=== PATIENT | male | born 1945 | race Asian ===

== ENCOUNTER 2020-12-28 14:32 | Inpatient (IN) | payer BC, MEDICAID ==
[~2020-12-28] VITALS: Ht 160 cm; Wt 44.0 kg
--- NOTE | 2020-12-28 14:56 | NUR ---
Dr Buitrago at the bedside for MSE.
[2020-12-28 15:11] LABS: *BILIRUBIN,URIN NEGATIVE (NEGATIVE); *BLOOD, URINE 3+ (NEGATIVE); *CLARITY,URINE SLIGHTLY CLOUDY (CLEAR); *COLOR,URINE YELLOW (YELLOW); *KETONES,URINE NEGATIVE (NEGATIVE); *UROBILINOGEN,URINE 0.2 E.U./dl (NORMAL); LEUKOCYTE ESTERASE ,URINE NEGATIVE (NEGATIVE); NITRITE, URINE NEGATIVE (NEGATIVE); PH,URINE 5.5 (5.0-8.0); UGLUCOSE NEGATIVE (NEGATIVE)
[2020-12-28] MEDS ORDERED: IV NORMAL SALINE 1000 ML BAG IV ONE (15:15)
[2020-12-28 15:22] LABS: BACTERIA,URINE NONE SEEN /HPF (NONE SEEN); RBC,URINE 80-100 /HPF (0-3)
--- NOTE | 2020-12-28 15:25 | NUR ---
Pt's daughter translate for pt's consent for IV contrasted CT. Pt signed consent, placed in the chart.
[2020-12-28 15:40] LABS: BASOPHILS # (AUTO) 0.1 K/uL (0.0-8.0); EOSINOPHILS # (AUTO) 0.4 K/uL (0.0-0.7); EOSINOPHILS % (AUTO) 3.2 % (0.0-7.0); HEMATOCRIT 34.3 % (36.7-47.1); HEMOGLOBIN 10.7 g/dL (12.5-16.3); LYMPHOCYTES # (AUTO) 1.2 K/uL (20.0-40.0); LYMPHOCYTES % (AUTO) 9.6 % (20.5-51.5); MEAN CORPUSCULAR HEMOGLOBIN 25.2 uug (23.8-33.4); MEAN CORPUSCULAR HGB CONC 31 g/dL (32.5-36.3); MEAN CORPUSCULAR VOLUME 80.8 fL (73.0-96.2); MONOCYTES # (AUTO) 0.8 K/uL (2.0-10.0); NEUTROPHILS # (AUTO) 9.4 K/uL (1.8-8.9); NEUTROPHILS % (AUTO) 79.2 % (38.5-71.5); PLATELET COUNT (AUTO) 322 K/uL (152-348); RED BLOOD CELL COUNT(AUTO) 4.24 MIL/uL (4.06-5.63); WHITE BLOOD COUNT (AUTO) 11.9 K/uL (3.6-10.2)
[2020-12-28 15:44] LABS: CREATININE 1.1 mg/dL (0.6-1.3); POTASSIUM 3.9 mmol/L (3.5-5.1)
[2020-12-28 16:01] LABS: BILIRUBIN,DIRECT 0.1 mg/dL (0.0-0.2); BILIRUBIN,TOTAL 0.2 mg/dL (0.2-1.0); TOTAL PROTEIN, SERUM 7.8 g/dL (6.4-8.2)
[2020-12-28] MEDS ORDERED: IOHEXOL 300MG/ML 100 ML INFUS..BTL ONE (16:07)
[2020-12-28] MEDS ORDERED: IV NORMAL SALINE 250 ML IV ONE (16:07)
[2020-12-28] MEDS ORDERED: SWABABLE VALVE TRANSFER SET EA MC ONE (16:07)
--- NOTE | 2020-12-28 18:02 | NUR ---
Dr Buitrago speaking to DR Julien(oncology).
--- NOTE | 2020-12-28 18:38 | NUR ---
GENNY PRINGLE spoke to vascular surgeon.
--- NOTE | 2020-12-28 18:50 | NUR ---
Received telephone call from Cristhian from [facility]. Cristhian stated their physician as agreed that the pt may be transfered to any facility for higher level of care.
--- NOTE | 2020-12-28 19:30 | NUR ---
Patient is resting semi-fowlers on bed. No acute distress is noted at this time.
--- NOTE | 2020-12-28 19:35 | NUR ---
Made a phone call to [facility]. Spoke with transfer center nurse Ramírez to request ACLS transfer of patient for vascular surgery and cardiothoracic per MD Cheng. Nurse Ramírez requested clinicals of patient to be faxed to .
--- NOTE | 2020-12-28 19:39 | NUR ---
[facility] [[email or web address]] phone intake called , left message to request transfer for higher level of care.
--- NOTE | 2020-12-28 19:40 | NUR ---
[facility] Greg Quintanilla called for higher level of care, phone number ; -Spoke with UBALDO Curry; faxed facesheet and clinicals.
--- NOTE | 2020-12-28 20:04 | NUR ---
[facility] contacted; phone number: ; -Spoke with UBALDO Sheth; sent facesheet and clinicals.
--- NOTE | 2020-12-28 20:39 | NUR ---
[facility] called back and requested to be connected to MD Cheng. MD Cheng on phone with them.
--- NOTE | 2020-12-28 20:56 | NUR ---
Dolores duffy in EDM - 12/28/20 at 2150 by MAKAYLA [facility] called back. UBALDO Sheth states that the institution declined to take the patient.
--- NOTE | 2020-12-28 20:56 | NUR ---
[facility] called back. UBALDO Sheth states that the institution declined to take the patient, stating the patient meets criteria more in line with involving hospice care.
--- NOTE | 2020-12-28 21:29 | NUR ---
[facility] Greg Landeros called back: -RN Antoinette stated cardiothoracic surgeon Joshua Crandall declined transfer d/t unacceptable masses stating patient is not a surgical candidate.
--- NOTE | 2020-12-28 21:50 | NUR ---
[facility] intake: ; fax: -Status paperwork faxed; Tawana declined patient transfer as they do not have teritary care services to meet the patient's specific needs.
--- NOTE | 2020-12-28 21:56 | NUR ---
Called [facility] again to request transfer for higher level of care. Left message again.
--- NOTE | 2020-12-28 22:27 | NUR ---
[facility] intake called back, UBALDO Rush requested facesheet and clinicals to be faxed to: . Paperwork faxed. Pending call back.
--- NOTE | 2020-12-28 23:26 | NUR ---
Patient resting on bed, eyes closed. No acute distress noted at this time.
--- NOTE | 2020-12-28 23:50 | NUR ---
[facility]jay Townsend called back service representative Kadie states the reason is that it was financially declined by the insurance company. She recommends reaching out to [facility] to see which tertiary care facility is contracted and states Charles Townsend will deny regardless.
--- NOTE | 2020-12-29 01:34 | NUR ---
Paged Epic panel biodiesel plant operations engineer. Waiting for Myah Rowe DNP to call back.
--- NOTE | 2020-12-29 01:36 | NUR ---
Called for room for patient. Patient will be assigned to telemetry room 319. call center analyst hospitalist BONITA Rowe paged from [facility].
--- NOTE | 2020-12-29 01:38 | NUR ---
BONITA Rowe called back, call transferred to MD Cheng.
[2020-12-29] MEDS ORDERED: TEMAZEPAM 15 MG CAPSULE PO PRN (01:45)
[2020-12-29] MEDS ORDERED: ONDANSETRON 4 MG/2 ML VIAL IV PRN (01:45)
[2020-12-29] MEDS ORDERED: Z GUARD REMEDY PASTE 57 GM TUBE TOP PRN (01:45)
[2020-12-29] MEDS ORDERED: MORPHINE SULFATE 2 MG/1 ML DISP.SYRIN IV PRN (01:45)
[2020-12-29] MEDS ORDERED: ACETAMINOPHEN 325 MG TABLET PO PRN (01:45)
--- NOTE | 2020-12-29 02:00 | NUR ---
[facility] intake called back, requesting authorization for transfer of patient. Call transferred to Ronks.
--- NOTE | 2020-12-29 02:22 | NUR ---
Report given to UBALDO Smith.
--- NOTE | 2020-12-29 03:23 | NUR ---
Patient resting in bed, no acute distress noted. Pending [facility] [place] call back to follow up on patient.
--- NOTE | 2020-12-29 03:25 | NUR ---
[facility] [place] [place]GEON CALLED BACK, CALL TRANSFERED TO MD SHERWOOD.
--- NOTE | 2020-12-29 03:34 | NUR ---
Note tati in EDM - 12/29/20 at 0336 by MAKAYLA [facility] CT Surgeon Jonas declined accepting the patient d/t too high of a tumor border for cardiothoracic surgery. Patient will be admitted here in [facility].
--- NOTE | 2020-12-29 03:36 | NUR ---
[facility] CT Surgeon Jonas declined accepting the patient d/t too high of a tumor burden for cardiothoracic surgery. Patient will be admitted here in [facility].
--- NOTE | 2020-12-29 04:02 | NUR ---
UBALDO Rush from [facility] called to notify that oncology is not accepting the patient either and to reiterate that the cardiothoracic surgeon is not accepting the patient either.
--- NOTE | 2020-12-29 04:02 | NUR ---
Dolores duffy in ED - 12/29/20 at 0403 by MAKAYLA UBALDO Rush from [facility] called to notify that oncology is not accepting the patient either and to reiterate that the cardiothoracic surgeon is not accepting the patient either.
--- NOTE | 2020-12-29 04:30 | NUR ---
Pt. admitted to telemetry room 319, under care of BONITA Rowe. Belongs List completed
[2020-12-29 05:02] VITALS: BP 145/77
--- NOTE | 2020-12-29 05:28 | NUR ---
ADMITTED,MALE WITH CHIEF COMPLAINED OF HEMATURIA,ALERT X3 SPEAKS [place], MADE COMFORTABLE. ORDERS CARRIED OUT
--- NOTE | 2020-12-29 05:30 | NUR ---
NO HEMATURIA NOTED
--- NOTE | 2020-12-29 07:46 | NUR ---
PATIENT AWAKE AND RESPONSIVE. BREATHING EVEN AND NON LABORED. NO SOB NOTED. NO FACIAL GRIMACING NOTED. NO HEMATURIA NOTED. KEPT COMFORTABLE. CALL LIGHT IN REACH. CONTINUE TO MONITOR.
[2020-12-29 08:35] VITALS: BP_SYST 143; BP_SYST 147; BP_DIAS 63; BP_DIAS 83
[2020-12-29] MEDS ORDERED: ALBUTEROL SULFATE 1.25 MG/3 ML NEBU NEB PRN (09:15)
[2020-12-29] MEDS ORDERED: IPRATROPIUM BROMIDE 0.5 MG/2.5 ML NEBU NEB PRN (09:15)
[2020-12-29] MEDS ORDERED: HEPARIN/D5W DRIP 500 ML IV PRN (10:00)
[2020-12-29 11:43] VITALS: BP 120/67
[2020-12-29 12:11] LABS: THYROID STIMULATING HORMONE 2.959 mIU/mL (0.358-3.740)
--- NOTE | 2020-12-29 13:19 | NUR ---
Dtr is here with patient's , brought some lunch for the patient. Noted with good appetite. No nausea or vomiting. Translated to patient to call if he needs anything. Safety measures maintained. Call light in reach. Continue to monitor.
--- NOTE | 2020-12-29 15:51 | NUR ---
Spoke with Antonio at [facility]. Patient will have kidney biopsy tomorrow around 1pm. Dr. Julien with order to hold heparin at 7am 12/30/20 and pt/inr/aptt lab at 11am noted and carried out.
[2020-12-29 15:55] VITALS: BP 99/69
[2020-12-29] MEDS: HYDROCODONE/APAP 5-325MG TABLET PO PRN (19:35)
[2020-12-29] MEDS ORDERED: HEPARIN SODIUM,PORCINE 1,000 UNITS/ML VIAL IV ONE (20:00)
[2020-12-29 20:15] VITALS: BP 128/75
[2020-12-29] MEDS: MAGNESIUM HYDROXIDE 30 ML LIQUID UDC PO PRN (20:16)
[2020-12-30 00:21] VITALS: BP 124/76
[2020-12-30 05:12] VITALS: BP 117/69
--- NOTE | 2020-12-30 06:38 | NUR ---
pt rested well in between care; pt had no BM for 4 days, prune juice and milk of magnesia given; pt c/o pain last night and norco given with good result; pt remains on heparin drip to be off at 0700 for procedure; 0120H has therapeutic PTT at 69.3; safety maintained; needs attended; continue to monitor; continue plan of care.
[2020-12-30 06:40] LABS: BASOPHILS # (AUTO) 0.1 K/uL (0.0-8.0); BASOPHILS % (AUTO) 0.6 % (0.0-2.0); EOSINOPHILS # (AUTO) 0.4 K/uL (0.0-0.7); EOSINOPHILS % (AUTO) 3.8 % (0.0-7.0); HEMATOCRIT 35.9 % (36.7-47.1); HEMOGLOBIN 11.3 g/dL (12.5-16.3); LYMPHOCYTES % (AUTO) 10.4 % (20.5-51.5); MEAN CORPUSCULAR HEMOGLOBIN 25.5 uug (23.8-33.4); MEAN CORPUSCULAR HGB CONC 32 g/dL (32.5-36.3); MONOCYTES # (AUTO) 0.6 K/uL (2.0-10.0); MONOCYTES % (AUTO) 6.2 % (0.0-11.0); NEUTROPHILS # (AUTO) 7.9 K/uL (1.8-8.9); PLATELET COUNT (AUTO) 295 K/uL (152-348); RED BLOOD CELL COUNT(AUTO) 4.43 MIL/uL (4.06-5.63)
[2020-12-30 07:13] LABS: CREATININE 1.1 mg/dL (0.6-1.3); MAGNESIUM 2.5 mg/dL (1.8-2.4); PHOSPHOROUS 3.9 mg/dL (2.5-4.9); POTASSIUM 4.5 mmol/L (3.5-5.1)
--- NOTE | 2020-12-30 07:25 | NUR ---
Patient awake and responsive. No distress. No facial grimacing. Safety measures maintained. kept comfortable. Call light in reach. Continue to monitor.
[2020-12-30 08:00] VITALS: BP 168/83
[2020-12-30 08:06] LABS: *IMMUNOGLOBULIN G, SERUM 2073 mg/dL (603-1613); A/G RATIO 0.6 (0.7-1.7); ALBUMIN 2.5 g/dL (2.9-4.4); ALPHA-1-GLOBULIN 0.4 g/dL (0.0-0.4); GLOBULIN, TOTAL 4.4 g/dL (2.2-3.9); IMMUNOGLOBULIN A, SERUM 348 mg/dL (61-437); IMMUNOGLOBULIN M, SERUM 102 mg/dL (15-143); M-SPIKE Not Observed g/dL (Not Observed)
--- NOTE | 2020-12-30 09:03 | NUR ---
Spoke with Wayne at radiology. Biopsy has been moved to 230pm and pathologist already knows. Dr. Lane will do biopsy and Wayne will page if ok for patient to take pain pill. Spoke to Dr. Rodriguez and he said ok to take pain pill if ok with radiology. Waiting for call back.
--- NOTE | 2020-12-30 09:23 | NUR ---
Wayne called back per Dr. Lane ok to give [place] po if patient prefers. Asked patient. No pain noted. Patient said he's hungry but reinforced that he needs to be npo for biopsy this afternoon. Max molina is here and said thoracentesis will be done tomorrow morning instead d/t biopsy today and that he spoke with Dr. Lane and informed Dr. Cobb already. Informed patient and he said dtwillian Medina is coming to visit shortly. Continue to monitor.
--- NOTE | 2020-12-30 10:00 | NUR ---
Spoke to Dr. Rodriguez and said hydration not needed at this time and ok to give milk of magnesia per family's request if ok with Dr. Lane. Spoke to Dr. Lane and he said it's ok. Continue to monitor.
[2020-12-30] MEDS: MORPHINE SULFATE 4 MG/1 ML DISP.SYRIN IV PRN (10:20)
[2020-12-30 12:00] VITALS: BP 127/71
[2020-12-30] MEDS ORDERED: ASPI-1420 PO (12:55)
[2020-12-30] MEDS ORDERED: ATOR10TA PO (12:56)
[2020-12-30] MEDS ORDERED: FAMO-132 PO (12:57)
[2020-12-30] MEDS ORDERED: OMEP20TA5 PO (13:01)
--- NOTE | 2020-12-30 13:07 | NUR ---
Left ac Iv line noted leaking. Able to insert on left forearm 20g noted with good blood return. Patient denies pain.
[2020-12-30] MEDS ORDERED: NALOXONE 2 MG/2 ML SYRINGE IV PRN (13:45)
[2020-12-30] MEDS ORDERED: MIDAZOLAM HCL 10 MG/2 ML VIAL IV PRN (13:45)
[2020-12-30] MEDS ORDERED: FENTANYL CITRATE 250 MCG/5 ML AMPUL IV PRN (13:45)
--- NOTE | 2020-12-30 14:18 | NUR ---
Patient picked up by Wayne from radiology for kidney biopsy. In no acute distress. Denies pain. No sob noted. Family at bedside.
[2020-12-30] MEDS ORDERED: LIDOCAINE HCL 1% 20 ML VIAL ONE (15:18)
--- NOTE | 2020-12-30 16:11 | NUR ---
Patient came back from Right kidney with biopsy family at bedside. Report received from Radha CONNER and spoke to Dr. Lane. Per Dr. Lane continue to hold heparin for 6 more hours, patient to stay on the right side, and may eat as tolerated noted and carried out. Informed patient and translated by family. Patient in no acute distress. No bleeding on site. VS taken: 98.2, 142/85, 89, 18, 97% on room air. Continue to monitor.
[2020-12-30 16:15] VITALS: BP 142/85
[2020-12-30] MEDS: ENSURE ENLIVE (VAN) 240 ML LIQUID PO SCH (18:15)
--- NOTE | 2020-12-30 18:48 | NUR ---
Patient awake and resting on his right side. No acute distress. Denies pain. No sob noted. Ate with family earlier, noted with good appetite. No nausea or vomiting reported. Voiding well. No hematuria noted. Kept comfortable.
--- NOTE | 2020-12-30 19:30 | NUR ---
RECEIVED PT AWAKE, ALERT AND ORIENTEDX4. PT IN NO ACUTE DISTRESS. IV INTACT. SAFETY AND COMFORT PROVIDED. WILL CONTINUE TO MONITOR.
[2020-12-30 20:00] VITALS: BP 110/76
--- NOTE | 2020-12-30 20:40 | NUR ---
PHARMACIST CALLED TO START HEPARIN AT 2200H AT 800 UNITS/HR AND ORDER PTT AT 0400H. YARED DODSON DNP MADE AWARE OF ABOVE ORDER AND CONCURRED.
[2020-12-30] MEDS: HEPARIN/D5W DRIP 500 ML IV PRN (22:00)
[2020-12-31] VITALS: BP 121/71
[2020-12-31 04:00] VITALS: BP 125/71
[2020-12-31 04:15] LABS: BASOPHILS # (AUTO) 0.1 K/uL (0.0-8.0); BASOPHILS % (AUTO) 0.5 % (0.0-2.0); EOSINOPHILS # (AUTO) 0.4 K/uL (0.0-0.7); EOSINOPHILS % (AUTO) 3.7 % (0.0-7.0); HEMATOCRIT 33.7 % (36.7-47.1); HEMOGLOBIN 10.8 g/dL (12.5-16.3); LYMPHOCYTES % (AUTO) 9.6 % (20.5-51.5); MEAN CORPUSCULAR HEMOGLOBIN 25.8 uug (23.8-33.4); MEAN CORPUSCULAR HGB CONC 32 g/dL (32.5-36.3); MEAN CORPUSCULAR VOLUME 80.3 fL (73.0-96.2); MONOCYTES # (AUTO) 0.8 K/uL (2.0-10.0); NEUTROPHILS # (AUTO) 8.6 K/uL (1.8-8.9); NEUTROPHILS % (AUTO) 79.2 % (38.5-71.5); PLATELET COUNT (AUTO) 289 K/uL (152-348); WHITE BLOOD COUNT (AUTO) 10.9 K/uL (3.6-10.2)
[2020-12-31 04:36] LABS: CREATININE 1.2 mg/dL (0.6-1.3); POTASSIUM 4.5 mmol/L (3.5-5.1)
--- NOTE | 2020-12-31 06:10 | NUR ---
PT PTT AT 0400H IS 37.9 SEC. PER PROTOCOL GIVE BOLUS OF 1760 UNITS IV AND INCREASE DRIP BY 2 UNITS /KG/H=90 UNITS/H TOTAL PF 890UNITS/HR . PTT IN 6 HOURS.
[2020-12-31] MEDS ORDERED: HEPARIN SODIUM,PORCINE 5,000 UNITS/ML VIAL IV ONE (06:15)
--- NOTE | 2020-12-31 07:34 | NUR ---
PT SLEPT INTERMITTENTLY. PT IN NO ACUTE DISTRESS. IV INTACT. PRESCRIBED MEDICATION GIVEN AND PT TOLERATED IT WELL. SAFETY AND COMFORT PROVIDED. WILL ENDORSE TO INCOMING NURSE FOR CONTINUITY OF CARE .
--- NOTE | 2020-12-31 07:39 | NUR ---
Received awake and talking on his phone. No acute distress. Right side biopsy with dressing on, no s/sx of bleeding noted. Denies pain or discomfort. Iv heparin infusing well tolerated. Bed is low and locked. Safety maintained. Kept comfortable. Will continue to monitor.
[2020-12-31] MEDS: HEPARIN/D5W DRIP 500 ML IV PRN (08:32)
[2020-12-31] MEDS: ENSURE ENLIVE (VAN) 240 ML LIQUID PO SCH ×3 (08:41→17:07)
[2020-12-31] MEDS: MAGNESIUM HYDROXIDE 30 ML LIQUID UDC PO PRN (10:43)
[2020-12-31] MEDS: MORPHINE SULFATE 4 MG/1 ML DISP.SYRIN IV PRN ×2 (10:44→18:51)
--- NOTE | 2020-12-31 11:03 | NUR ---
Dr. Julien with order to discontinue Heparin drip, start Lovenox 1mg/kg sq q12hrs pharmacy to dose, and hold Lovenox morning dose on 01/01/21 for thoracentesis noted and carried out. Patient and family at bedside made aware.
[2020-12-31 11:30] VITALS: BP 90/40
[2020-12-31] MEDS: ENOXAPARIN SODIUM 40 MG/0.4 ML DISP.SYRIN SQ SCH ×2 (12:16→23:00)
[2020-12-31 16:09] VITALS: BP 134/73
--- NOTE | 2020-12-31 18:44 | NUR ---
Patient resting comfortably, family at bedside. In no acute distress. Denies pain. Safety maintained. Needs attended.
--- NOTE | 2020-12-31 19:06 | NUR ---
Patient c/o stomach pain. Per daughter, pt gets stomach pain only after eating but is relieved after pain medication. Per dtr patient is eating more than he usually does. Denies nausea or vomiting. Patient had a bowel movement today. Abdomen is soft and not distended. Endorsed to oncoming shift to let MD know.
--- NOTE | 2020-12-31 19:30 | NUR ---
RECEIVED PT IN NO ACUTE DISTRESS. IV INTACT.FAMILY AT BEDSIDE.SAFETY AND COMFORT PROVIDED. WILL CONTINUE TO MONITOR.
[2020-12-31 20:30] VITALS: BP 138/77
--- NOTE | 2020-12-31 23:00 | NUR ---
HOLD DOSE PER MD FOR LOVENOX MEDICATION.
[2021-01-01 04:30] VITALS: BP 114/65
[2021-01-01 06:25] LABS: BASOPHILS # (AUTO) 0.1 K/uL (0.0-8.0); BASOPHILS % (AUTO) 0.5 % (0.0-2.0); EOSINOPHILS # (AUTO) 0.4 K/uL (0.0-0.7); EOSINOPHILS % (AUTO) 3.8 % (0.0-7.0); HEMATOCRIT 36.3 % (36.7-47.1); HEMOGLOBIN 11.6 g/dL (12.5-16.3); LYMPHOCYTES # (AUTO) 1.2 K/uL (20.0-40.0); LYMPHOCYTES % (AUTO) 11.8 % (20.5-51.5); MEAN CORPUSCULAR HEMOGLOBIN 26.2 uug (23.8-33.4); MEAN CORPUSCULAR HGB CONC 32 g/dL (32.5-36.3); MONOCYTES # (AUTO) 0.7 K/uL (2.0-10.0); MONOCYTES % (AUTO) 6.9 % (0.0-11.0); NEUTROPHILS # (AUTO) 7.9 K/uL (1.8-8.9); PLATELET COUNT (AUTO) 302 K/uL (152-348); RED BLOOD CELL COUNT(AUTO) 4.43 MIL/uL (4.06-5.63); WHITE BLOOD COUNT (AUTO) 10.3 K/uL (3.6-10.2)
--- NOTE | 2021-01-01 06:27 | NUR ---
PT SLEPT INTERMITTENTLY. PT IN NO ACUTE DISTRESS. IV INTACT. PRESCRIBED MEDICATION GIVEN AND PT TOLERATED IT WELL. NO PRN MEDICATIONS GIVEN ON MY SHIFT. LOVENOX HELD PER MD. SAFETY AND COMFORT PROVIDED.ALL NEEDS ARE MET. WILL ENDORSE TO INCOMING NURSE FOR CONTINUITY OF CARE.
[2021-01-01 06:28] LABS: CREATININE 1.3 mg/dL (0.6-1.3); POTASSIUM 4.1 mmol/L (3.5-5.1)
--- NOTE | 2021-01-01 08:00 | NUR ---
received change of shift report. pt a/ox4, Thai speaking, pt on room air, no signs of distress noted, no reports of pain art this time. pt ambulatory with assist, BRP, pt has IV access on the left FA 20g saline lock. Call daughter to communicate with pt, bed low and locked, call light within reach, safety precautions in place, will continue with plan of care.
[2021-01-01 08:25] VITALS: BP 130/72
[2021-01-01] MEDS: ENOXAPARIN SODIUM 40 MG/0.4 ML DISP.SYRIN SQ SCH ×2 (08:29→21:03)
[2021-01-01] MEDS: ENSURE ENLIVE (VAN) 240 ML LIQUID PO SCH ×3 (08:30→17:05)
--- NOTE | 2021-01-01 09:42 | NUR ---
PATIENT'S NURSE, REESE CALLED XRAY TO LET US KNOW THAT THE PATIENT WAS GIVEN LOVANOX/ENOXAPARIN 40MG , I TRANFER THE CALL TO DR. ANNE AND HE SAID HE TOLD THEM NOT TO GIVE THE PATIENT ANY BLOOD THINNERS BEFORE THE THORACENTISIS, THEREFORE THE PROCEDURE HAS BEEN CANCELLED FOR RIGHT NOW. PLEASE SEE KARLI'S U/S TECH FOR MORE INFORMATION AND WHEN THE PROCEDURE WILL BE DONE.
--- NOTE | 2021-01-01 09:47 | NUR ---
The procedure for Thoracentesis is cancelled by Dr. Crista Lane. The patient was given Lovanox this morning per RN Mariza.
[2021-01-01 11:18] VITALS: BP 133/77
[2021-01-01 14:21] VITALS: BP 123/70
[2021-01-01] MEDS: MORPHINE SULFATE 4 MG/1 ML DISP.SYRIN IV PRN (17:29)
--- NOTE | 2021-01-01 18:25 | NUR ---
pt resting in bed, family at bedside. pt Cape Verdean speaking, daughter able to translate for pt. pt a/ox4, on room air, no signs of distress, no reports of pain. pt continent, ambulatory with assist, IV on the left FA 20g saline lock, bed low and locked, safety precautions in place. will endorse to oncoming nurse.
--- NOTE | 2021-01-01 20:00 | NUR ---
Received call from Dr. Julien. Received order to hold Lovenox on MONDAY morning for procedure. supervisor in charge notified.
[2021-01-01 20:39] VITALS: BP 127/73
[2021-01-02 04:00] VITALS: BP 130/74
[2021-01-02 06:58] LABS: BASOPHILS # (AUTO) 0.1 K/uL (0.0-8.0); BASOPHILS % (AUTO) 0.6 % (0.0-2.0); EOSINOPHILS # (AUTO) 0.4 K/uL (0.0-0.7); EOSINOPHILS % (AUTO) 3.7 % (0.0-7.0); HEMATOCRIT 34.5 % (36.7-47.1); HEMOGLOBIN 11.1 g/dL (12.5-16.3); LYMPHOCYTES # (AUTO) 1.1 K/uL (20.0-40.0); LYMPHOCYTES % (AUTO) 11.4 % (20.5-51.5); MEAN CORPUSCULAR HEMOGLOBIN 26.2 uug (23.8-33.4); MEAN CORPUSCULAR HGB CONC 32 g/dL (32.5-36.3); MEAN CORPUSCULAR VOLUME 81.1 fL (73.0-96.2); MONOCYTES # (AUTO) 0.7 K/uL (2.0-10.0); MONOCYTES % (AUTO) 7.4 % (0.0-11.0); NEUTROPHILS # (AUTO) 7.6 K/uL (1.8-8.9); NEUTROPHILS % (AUTO) 76.9 % (38.5-71.5); PLATELET COUNT (AUTO) 291 K/uL (152-348); RED BLOOD CELL COUNT(AUTO) 4.26 MIL/uL (4.06-5.63); WHITE BLOOD COUNT (AUTO) 9.9 K/uL (3.6-10.2)
[2021-01-02 07:06] LABS: CREATININE 1.2 mg/dL (0.6-1.3); POTASSIUM 4.4 mmol/L (3.5-5.1)
--- NOTE | 2021-01-02 07:30 | NUR ---
received change of shift report, pt in bed resting, a/ox4, on room air, no signs of distress, no reports of pain. ambulatory with assist. pt continent, iv access on the left FA 20g saline lock. bed low and locked, call light within reach, safety precautions in place, will continue to monitor.
[2021-01-02] MEDS: ENSURE ENLIVE (VAN) 240 ML LIQUID PO SCH ×3 (09:06→17:36)
[2021-01-02] MEDS: ENOXAPARIN SODIUM 40 MG/0.4 ML DISP.SYRIN SQ SCH ×2 (09:06→20:19)
[2021-01-02 11:00] VITALS: BP 111/65
--- NOTE | 2021-01-02 11:00 | NUR ---
Verified with daughter, Jennifer, at bedside, her correct contact info: .
[2021-01-02 16:00] VITALS: BP 105/69
--- NOTE | 2021-01-02 18:23 | NUR ---
pt in bed resting, at bedside. pt Citizen Of [place] speaking only. pt a/ox4, room air, no reports of pain at this time. all medications given, all needs met this shift. MONDAY MORNING DOSE OF LOVENOX TO BE HELD.
[2021-01-02 20:39] VITALS: BP 136/73
[2021-01-03 04:41] VITALS: BP 119/67
[2021-01-03 06:00] LABS: BASOPHILS # (AUTO) 0.1 K/uL (0.0-8.0); BASOPHILS % (AUTO) 1.3 % (0.0-2.0); EOSINOPHILS # (AUTO) 0.4 K/uL (0.0-0.7); HEMATOCRIT 31.9 % (36.7-47.1); HEMOGLOBIN 10.2 g/dL (12.5-16.3); LYMPHOCYTES # (AUTO) 1.1 K/uL (20.0-40.0); LYMPHOCYTES % (AUTO) 11.4 % (20.5-51.5); MEAN CORPUSCULAR HEMOGLOBIN 25.9 uug (23.8-33.4); MEAN CORPUSCULAR HGB CONC 32 g/dL (32.5-36.3); MONOCYTES # (AUTO) 0.7 K/uL (2.0-10.0); MONOCYTES % (AUTO) 7.7 % (0.0-11.0); NEUTROPHILS # (AUTO) 7.3 K/uL (1.8-8.9); NEUTROPHILS % (AUTO) 75.6 % (38.5-71.5); PLATELET COUNT (AUTO) 255 K/uL (152-348); RED BLOOD CELL COUNT(AUTO) 3.94 MIL/uL (4.06-5.63); WHITE BLOOD COUNT (AUTO) 9.6 K/uL (3.6-10.2)
[2021-01-03 06:14] LABS: CREATININE 1.1 mg/dL (0.6-1.3); POTASSIUM 4.2 mmol/L (3.5-5.1)
[2021-01-03 08:00] VITALS: BP 122/71
--- NOTE | 2021-01-03 08:00 | NUR ---
received change of shift report. pt on room air, no signs of distress, family at bedside. a/ox4, continent, IV access on the left FA 20g saline lock. bed low and locked, call light within reach, will continue with plan of care.
[2021-01-03] MEDS ORDERED: Medication Not On Formulary EA (Omeprazole 20 MG) PO SCH (09:00)
[2021-01-03] MEDS: ENSURE ENLIVE (VAN) 240 ML LIQUID PO SCH ×3 (09:03→17:38)
[2021-01-03] MEDS: FAMOTIDINE 20 MG TABLET PO SCH (09:03)
[2021-01-03] MEDS: ASPIRIN EC 81 MG TABLET.DR PO SCH (09:03)
[2021-01-03] MEDS: ENOXAPARIN SODIUM 40 MG/0.4 ML DISP.SYRIN SQ SCH ×2 (09:08→20:28)
[2021-01-03 15:13] LABS: *OCCULT BLOOD STOOL NEGATIVE (NEGATIVE)
[2021-01-03 16:06] VITALS: BP 119/47
--- NOTE | 2021-01-03 19:19 | NUR ---
pt in bed resting, HOLD MONDAY AM dose of lovenox. NPO at midnight, pt to have thoracentesis Thursday 01/04. pt on room air, no signs of distress, no reports of pain, call light within reach. will endorse to oncoming nurse.
[2021-01-03] MEDS: ATORVASTATIN 10 MG TABLET PO SCH (20:26)
[2021-01-03 20:34] VITALS: BP 125/72
[2021-01-04 04:45] VITALS: BP 129/68
[2021-01-04 06:25] LABS: BASOPHILS # (AUTO) 0.1 K/uL (0.0-8.0); BASOPHILS % (AUTO) 0.6 % (0.0-2.0); EOSINOPHILS # (AUTO) 0.4 K/uL (0.0-0.7); EOSINOPHILS % (AUTO) 3.9 % (0.0-7.0); HEMATOCRIT 33.1 % (36.7-47.1); HEMOGLOBIN 10.5 g/dL (12.5-16.3); LYMPHOCYTES # (AUTO) 1.1 K/uL (20.0-40.0); LYMPHOCYTES % (AUTO) 12.1 % (20.5-51.5); MEAN CORPUSCULAR HEMOGLOBIN 25.8 uug (23.8-33.4); MEAN CORPUSCULAR HGB CONC 32 g/dL (32.5-36.3); MEAN CORPUSCULAR VOLUME 81.3 fL (73.0-96.2); MONOCYTES # (AUTO) 0.7 K/uL (2.0-10.0); MONOCYTES % (AUTO) 7.8 % (0.0-11.0); NEUTROPHILS # (AUTO) 6.7 K/uL (1.8-8.9); NEUTROPHILS % (AUTO) 75.6 % (38.5-71.5); PLATELET COUNT (AUTO) 274 K/uL (152-348); RED BLOOD CELL COUNT(AUTO) 4.07 MIL/uL (4.06-5.63); WHITE BLOOD COUNT (AUTO) 8.9 K/uL (3.6-10.2)
[2021-01-04 06:38] LABS: CREATININE 1.2 mg/dL (0.6-1.3); POTASSIUM 4.2 mmol/L (3.5-5.1)
--- NOTE | 2021-01-04 07:09 | NUR ---
Pt. slept through the night. V/S stable on room air. Denies acute distress or pain. Pt scheduled for thoracentesis today. Pre op checklist done, informed consent signed. Comfort care and needs attended. Safety measures in place. Will endorse to oncoming nurse.
[2021-01-04 07:33] VITALS: BP 95/66
--- NOTE | 2021-01-04 08:00 | NUR ---
Used geological aide phone for uruguayan geological aide to communicate with pt and family member. Pt denies any c/o pain. Awaiting ADI abd. Call light is within reach.
[2021-01-04] MEDS: ENOXAPARIN SODIUM 40 MG/0.4 ML DISP.SYRIN SQ SCH ×2 (08:16→14:02)
[2021-01-04] MEDS: FAMOTIDINE 20 MG TABLET PO SCH (08:50)
[2021-01-04] MEDS: ENSURE ENLIVE (VAN) 240 ML LIQUID PO SCH ×3 (08:50→16:21)
[2021-01-04] MEDS: ASPIRIN EC 81 MG TABLET.DR PO SCH (08:50)
[2021-01-04 11:34] VITALS: BP 118/71
--- NOTE | 2021-01-04 12:17 | NUR ---
Spoke with DR Julien notified that ADI reveals Moderate loculated R pleural effusions and per interventional Radiologist (DR ANNE) that thoracentesis cant be done.
--- NOTE | 2021-01-04 14:29 | NUR ---
used flight operations specialist phone for Mauritian Dialect. ID#[id number] to communicate with patient and family member. Notified Pt and Leticia/Bettina (daughter) that per interventional radiologist recommendations not to do thoracentesis and per worship director to continue Lovenox.
[2021-01-04 16:00] VITALS: BP 124/68
--- NOTE | 2021-01-04 18:30 | NUR ---
Notified next shift that LOVENOX is to be given @ [facility] per pharmacist suggestion. PT denies any c/o pain. Call light is within reach.
--- NOTE | 2021-01-04 20:00 | NUR ---
RECEIVED PATIENT AWAKE IN BED. NO C/O PAIN OR DISCOMFORT. NO RESP.DISTRESS NOTED. VS WNL. CALL LIGHT IN REACH. ALL NEEDS ATTENDED, WILL CONTINUE TO MONITOR AND ASSESS.
[2021-01-04] MEDS: ATORVASTATIN 10 MG TABLET PO SCH (20:27)
[2021-01-04 20:29] VITALS: BP 141/70
[2021-01-05 04:48] VITALS: BP 123/69
[2021-01-05 06:25] LABS: BASOPHILS # (AUTO) 0.1 K/uL (0.0-8.0); BASOPHILS % (AUTO) 0.7 % (0.0-2.0); EOSINOPHILS # (AUTO) 0.3 K/uL (0.0-0.7); EOSINOPHILS % (AUTO) 3.8 % (0.0-7.0); HEMATOCRIT 33.7 % (36.7-47.1); HEMOGLOBIN 10.7 g/dL (12.5-16.3); LYMPHOCYTES # (AUTO) 1.4 K/uL (20.0-40.0); LYMPHOCYTES % (AUTO) 15.2 % (20.5-51.5); MEAN CORPUSCULAR HEMOGLOBIN 25.9 uug (23.8-33.4); MEAN CORPUSCULAR HGB CONC 32 g/dL (32.5-36.3); MEAN CORPUSCULAR VOLUME 81.6 fL (73.0-96.2); MONOCYTES # (AUTO) 0.7 K/uL (2.0-10.0); MONOCYTES % (AUTO) 7.2 % (0.0-11.0); NEUTROPHILS # (AUTO) 6.6 K/uL (1.8-8.9); NEUTROPHILS % (AUTO) 73.1 % (38.5-71.5); PLATELET COUNT (AUTO) 305 K/uL (152-348); RED BLOOD CELL COUNT(AUTO) 4.13 MIL/uL (4.06-5.63); WHITE BLOOD COUNT (AUTO) 9.1 K/uL (3.6-10.2)
--- NOTE | 2021-01-05 06:34 | NUR ---
PATIENT SLEPT WELL THROUGHOUT THE NIGHT. DENIES PAIN. CALL LIGHT IN REACH.
[2021-01-05 06:35] LABS: CREATININE 1.1 mg/dL (0.6-1.3); POTASSIUM 4.1 mmol/L (3.5-5.1)
--- NOTE | 2021-01-05 07:30 | NUR ---
RECEIVED PATIENT IN BED HE IS ALERT BUT WITH LANGUAGE BARRIER SEEMS COMFORTABLE WITH NO SHORTNESS OF BREATH AT THIS TIME CALL LIGHTS AND HIS PERSONAL BELONGINGS ARE WITHIN EASY REACH AT THIS TIME WILL CONTINUE TO OBSERVE AND PROVIDE COMFORT.
[2021-01-05 07:54] VITALS: BP 132/76
[2021-01-05] MEDS: ASPIRIN EC 81 MG TABLET.DR PO SCH (08:47)
[2021-01-05] MEDS: FAMOTIDINE 20 MG TABLET PO SCH (08:47)
[2021-01-05] MEDS: ENOXAPARIN SODIUM 40 MG/0.4 ML DISP.SYRIN SQ SCH ×2 (08:48)
[2021-01-05] MEDS: HYDROCODONE/APAP 5-325MG TABLET PO PRN (08:55)
[2021-01-05] MEDS: ENSURE ENLIVE (VAN) 240 ML LIQUID PO SCH ×2 (09:36→13:12)
[2021-01-05 11:43] VITALS: BP 136/77
[2021-01-05] MEDS ORDERED: APIX5TAB PO (11:53)
[2021-01-05] MEDS ORDERED: ALBU6.7H9 INH (11:53)
--- NOTE | 2021-01-05 13:12 | NUR ---
CALL RECEIVED FROM THE FIRST ASSIST COMMODITY MANAGEMENT SPECIALIST STATED IS ARRANGING FOR HOME HEALTH FOR THE PATIENT BUT IS WAITING FOR THE PATIENTS INSURANCE AUTHORIZATION MEANWHILE IF PATIENT IS DISCHARGED BEFORE THE AUTH THEN THE HOME HEALTH WILL CALL THE PATIENTS DAUGHTER DIRECTLY.
--- NOTE | 2021-01-05 14:04 | NUR ---
D/C PLANNING WAS ABLE TO TALK TO [facility] RE PATIENT ELIQUIS ORDERED SPOKE WITH AYA WHO INITIALLY STATED TO THE PATIENTS DAUGHTER THAT THE DO NOT HAVE THE PRESCRIPTION AND WHEN I CALLED HER SHE STATED THAT THEY DO NOT HAVE THE MEDICATION IN STOCK AND THAT THE PATIENTS DAUGHTER SHOULD SENIOR NETWORK ARCHITECT THE ELIQUIS TOMORROW BECAUSE THEY DO NOT HAVE IT IN STOCK BUT I TOLD HER THAT THIS MEDICATION MUST BE DISPENSED TODAY BECAUSE PATIENT MUST START TAKING THIS MED TONITE SO THEN SHE CAME BACK ON THE PHONE AND STATED THAT THE ELIQUIS WILL BE READY IN 10-15 MINS.PATIENTS DAUGHTER LUIS ALFREDO IS HERE AND AWARE
--- NOTE | 2021-01-05 15:33 | NUR ---
PATIENT DISCHARGED PICKED UP BY HER DAUGHTER LUIS ALFREDO IN SATISFACTORY CONDITION WITH DISCHARGE INSTRUCTIONS AND ALL HIS PERSONAL BELONGINGS AND LUIS ALFREDO INSTRUCTED TO CUSTOMER ACCOUNT COORDINATOR PATIENTS MEDICATION AT THE [facility] AND FOR HIM TO START TAKING THE ELIQUIS TONITE AT 8PM AND TO CALL THE PRIMARY DOCTOR DOCTOR NATHANIEL FOR FOLLOW WITH THE MEDICAL RECORDS ANALYST AND THE ONCOLOGIST CD GIVEN AND SHE EXPRESSED UNDERSTANDING
== END 2021-01-05 15:35 | disposition home health service (06) | DRG 134 ==
LOC: ER 14:32 → TELE3 12-29 04:26 → MEDSURG3 12-31 07:48
PROVIDERS: ADMIT Family Medicine; ATTEND Nurse Practitioner Family
PROC: 0TB03ZX Excision of Right Kidney, Percutaneous Approach, Diagnostic (ICD-10-PCS; principal; 2020-12-30)
DX: I26.99 Other pulmonary embolism without acute cor pulmonale (principal); E44.0 Moderate protein-calorie malnutrition; C79.01 Secondary malignant neoplasm of right kidney and renal pelvis; J90 Pleural effusion, not elsewhere classified; E88.09 Other disorders of plasma-protein metabolism, not elsewhere classified; E87.1 Hypo-osmolality and hyponatremia; E86.1 Hypovolemia; C34.91 Malignant neoplasm of unspecified part of right bronchus or lung; I51.3 Intracardiac thrombosis, not elsewhere classified; C34.92 Malignant neoplasm of unspecified part of left bronchus or lung; D63.0 Anemia in neoplastic disease; Z68.1 Body mass index [BMI] 19.9 or less, adult; D72.829 Elevated white blood cell count, unspecified; G89.29 Other chronic pain; J44.9 Chronic obstructive pulmonary disease, unspecified; K59.09 Other constipation; Z87.891 Personal history of nicotine dependence; Z79.01 Long term (current) use of anticoagulants; Z20.822 Contact with and (suspected) exposure to COVID-19; R62.7 Adult failure to thrive; K21.9 Gastro-esophageal reflux disease without esophagitis; R73.9 Hyperglycemia, unspecified; I51.89 Other ill-defined heart diseases; R31.9 Hematuria, unspecified; J98.11 Atelectasis; C34.90 Malignant neoplasm of unspecified part of unspecified bronchus or lung; N40.0 Benign prostatic hyperplasia without lower urinary tract symptoms; K57.30 Diverticulosis of large intestine without perforation or abscess without bleeding; D50.9 Iron deficiency anemia, unspecified; D63.8 Anemia in other chronic diseases classified elsewhere; I70.0 Atherosclerosis of aorta; R31.0 Gross hematuria; C79.9 Secondary malignant neoplasm of unspecified site
CPT/HCPCS: 36415; 70030-TC; 71045; 71260; 74150; 76942; 82378; 82784; 83550; 83605; 83615; 83735; 84100; 84153; 84155; 84165; 84443; 85025; 85610; 85730; 86301; 86334; 87040; 87086; 88333-TC; 93005; 93307; 93880; A4663; G0378; J1644; J1650; J2270; J3490; J7030; J7050; Q9967

== ENCOUNTER 2021-01-07 21:37 | Inpatient (IN) | payer BC ==
[~2021-01-07] VITALS: Ht 170.2 cm; Wt 45.8 kg
[~2021-01-07 21:37] MED LIST: ALBU6.7H9 INH; APIX5TAB PO; ASPI-1420 PO; ATOR10TA PO; FAMO-132 PO; OMEP20TA5 PO; VANCOMYCIN IV 1,000 MG in IV DEXTROSE 5% 250 ML IV ONE
[2021-01-07] MEDS ORDERED: levoFLOXacin 750MG/D5W 150 ML IV ONE ×2 (22:00→22:58)
[2021-01-07] MEDS ORDERED: IV NORMAL SALINE 1000 ML BAG IV ONE (22:00)
[2021-01-07] MEDS ORDERED: PANTOPRAZOLE SODIUM 40 MG VIAL IV ONE (22:00)
[2021-01-07 22:17] LABS: ABG HCO3 22.1 mmol/L; ABG PCO2 49.9 mmHg (35.0-45.0); ABG PH 7.264 (7.350-7.450); ABG PO2 90.6 mmHg (75.0-100.0); ABG SITE RIGHT RADIAL; COHb 1.2 % (0.5-1.5); MetHb 0.1 % (0.0-1.5); O2Hb 94.4 % (94.0-97.0)
[2021-01-07 22:27] LABS: HEMATOCRIT 36.2 % (36.7-47.1); MEAN CORPUSCULAR HEMOGLOBIN 25.8 uug (23.8-33.4); MEAN CORPUSCULAR VOLUME 81.7 fL (73.0-96.2); PLATELET COUNT (AUTO) 434 K/uL (152-348)
[2021-01-07] MEDS ORDERED: PROPOFOL 100 ML ONE (22:29)
[2021-01-07] MEDS ORDERED: SUCCINYLCHOLINE CHLORIDE 200 MG/10 ML VIAL IV ONE (22:30)
[2021-01-07] MEDS ORDERED: LIDOCAINE 2% (UROJET) 10 ML JELLY MM ONE ×2 (22:30→22:59)
[2021-01-07] MEDS ORDERED: ETOMIDATE 20 MG/10 ML VIAL IV ONE (22:30)
[2021-01-07] MEDS ORDERED: IV NORMAL SALINE 500 ML BAG IV ONE (22:30)
[2021-01-07] MEDS ORDERED: PROPOFOL 100 ML IV ONE (22:30)
[2021-01-07 22:34] LABS: CREATININE 1.2 mg/dL (0.6-1.3); POTASSIUM 3.7 mmol/L (3.5-5.1)
[2021-01-07] MEDS ORDERED: ALBUTEROL SULFATE 2.5 MG/3 ML NEBU ONE (22:37)
[2021-01-07 22:47] LABS: BILIRUBIN,DIRECT 0.1 mg/dL (0.0-0.2); BILIRUBIN,TOTAL 0.3 mg/dL (0.2-1.0); TOTAL PROTEIN, SERUM 8.3 g/dL (6.4-8.2)
[2021-01-07] MEDS ORDERED: PANTOPRAZOLE SODIUM 40 MG VIAL ONE (22:58)
[2021-01-07 23:34] LABS: ABG BASE EXCESS -6.1 mmol/L; ABG HCO3 21.8 mmol/L; ABG PCO2 54.1 mmHg (35.0-45.0); ABG PH 7.223 (7.350-7.450); ABG PO2 393.2 mmHg (75.0-100.0); ABG SITE LEFT FEMORAL; ABG TOTAL HEMOGLOBIN 11.3 G/dL (13.5-18.0); COHb 0.8 % (0.5-1.5); MetHb 0.1 % (0.0-1.5); O2Hb 98.8 % (94.0-97.0); VENT MODE VENT - A/C; VT, ABG 450 mL
[2021-01-07] MEDS ORDERED: Z GUARD REMEDY PASTE 57 GM TUBE TOP PRN (23:45)
[2021-01-07] MEDS ORDERED: PIPERACILLIN SODIUM/TAZOBACTAM 4.5 G in IV DEXTROSE 5% 50 ML IV SCH (23:45)
[2021-01-07] MEDS ORDERED: ONDANSETRON 4 MG/2 ML VIAL IV PRN (23:45)
[2021-01-07] MEDS ORDERED: ACETAMINOPHEN 325 MG TABLET PO PRN (23:45)
[2021-01-08] VITALS (31 sets, daily range): BP systolic 85–123; BP diastolic 36–65
--- NOTE | 2021-01-08 00:30 | NUR ---
Patient wheeled up to CCU bed #1 with assistance from ICU Nurses and RT. Monitor attached. Stable but critical. Daughter + son-in-law also accompanied patient.
[2021-01-08] MEDS ORDERED: VANCOMYCIN IV 200 ML ONE (00:34)
--- NOTE | 2021-01-08 00:40 | NUR ---
Admitted a 75 y.o male patient from ER DX: Acute hypoxic respiratory failure. To CCU1. Orally intubated and to mechanical ventilator with settings AC=20, PB=085ke, FIO2=50% and PEEP= 5 cm. O2 sats 100%. Adequately sedated with Diprivan drip at 40 mcg/kg/min via R femoral TLC. Doesn't open eyes but withdraws extremities to pain. Assessment completed. Addendum: 01/08/21 at 0230 by JIL NAIDU RN Amended: Links added. Addendum: 01/08/21 at 0233 by JIL NAIDU RN Amended: Links added.
--- NOTE | 2021-01-08 01:00 | NUR ---
Daughter Carol and son-in-law in. Routine CCU care including visiting hours discussed with them. Verbalized understanding. Admission data completed; information obtained from daughter and previous admission record. (patient was discharged from [facility] 01/05/21. Addendum: 01/08/21 at 0233 by JIL NAIDU RN Amended: Links added.
[2021-01-08] MEDS: IV NS 1000 ML 1,000 ML IV PRN ×2 (01:02→14:32)
[2021-01-08] MEDS: PROPOFOL 100 ML IV PRN ×3 (01:44→16:39)
--- NOTE | 2021-01-08 01:46 | NUR ---
75 y/o male brought in from home with his daughter and son-in-law due to hemoptysis. Due to patients critical status and inability to get much information from him or his family, my assessments will be minimal. Patient was seen here 10 days ago - found to have an emboli and discharged on Eliquis. Patient is ambulatory with help from his family members. A&Ox3. Unable to answer any questions. Tachycardic (Sinus)(130s) + hypertensive (195/95). Strong pulses in all extremities. Patient is severely short of breath - crackles heard without the need for auscultation.
--- NOTE | 2021-01-08 03:15 | NUR ---
PATIENT ON CONT JOHNSON VENT WITH 7.5 ET/TUBE IN PLACE , 22CM LIP LINE, WITH ANCHOR FAST IN PLACE , PT WAS INTUBATED IN ER ; BY DR HATFIELD, A LOT OF BLOODY SECRETIONS FROM MOUTH AND ET.TUBE WITH NS LAVAGE WITH OSBORN AND HME IN PLACE, INITIAL VENT SETTINGS, A/C 16, 450, 100%, PEEP5, WITH ABG DONE, PT RESP. ACIDOSIS, VENT CHANGES TO A/C 20, VT 450ML, FIO2 @ 50%, PEEP 5, PT IS SEDATED, PT DOES ASSIST AT TIMES, WITH GOOD COUGH EFFORT, CHANGE OSBORN AND HME AGAIN, DUE TO BLOODY SECRETIONS, NO OTHER VENT CHANGES MADE AT THIS TIME, AMBU BAG AT BEDSIDE, VENT PLUGGED INTO RED OUTLET. Antoine MEHTAP Addendum: 01/08/21 at 0320 by ERNESTINE QUINTERO RT Amended: Links added.
[2021-01-08 04:52] LABS: HEMATOCRIT 26.6 % (36.7-47.1); MEAN CORPUSCULAR HEMOGLOBIN 26.2 uug (23.8-33.4); MEAN CORPUSCULAR VOLUME 82.4 fL (73.0-96.2); PLATELET COUNT (AUTO) 253 K/uL (152-348)
[2021-01-08 05:12] LABS: BILIRUBIN,TOTAL 0.2 mg/dL (0.2-1.0); CREATININE 0.9 mg/dL (0.6-1.3); MAGNESIUM 1.8 mg/dL (1.8-2.4); PHOSPHOROUS 2.6 mg/dL (2.5-4.9); POTASSIUM 4.1 mmol/L (3.5-5.1); TOTAL PROTEIN, SERUM 5.8 g/dL (6.4-8.2)
[2021-01-08] MEDS ORDERED: SUCCINYLCHOLINE CHLORIDE 200 MG/10 ML VIAL IV ONE (06:00)
[2021-01-08 06:07] LABS: *BLOOD, URINE 3+ (NEGATIVE); *COLOR,URINE Brown (YELLOW); *KETONES,URINE NEGATIVE (NEGATIVE); *UROBILINOGEN,URINE 0.2 E.U./dl (NORMAL); LEUKOCYTE ESTERASE ,URINE NEGATIVE (NEGATIVE); NITRITE, URINE NEGATIVE (NEGATIVE); PH,URINE 5.5 (5.0-8.0); UGLUCOSE NEGATIVE (NEGATIVE)
[2021-01-08 06:12] LABS: *BILIRUBIN,URIN 1+ (NEGATIVE)
[2021-01-08 06:16] LABS: BACTERIA,URINE NONE SEEN /HPF (NONE SEEN); RBC,URINE 80-100 /HPF (0-3)
[2021-01-08 06:17] LABS: *CLARITY,URINE SLIGHTLY CLOUDY (CLEAR); SQUAMOUS EPITHELIAL CELL,UR FEW /HPF (NONE SEEN); URINE AMORPHOUS PHOSPHATES FEW /HPF
--- NOTE | 2021-01-08 06:22 | NUR ---
Remains on the same vent settings, O2 saturations 100%. Still with bloody secretions from ETT. With good cough reflex Patient adequately sedated with Diprivan drip at 40 mcg/kg/min. Grimaces to pain and moving extremities fairly well but no eye opening. VS stable. Results of elevated Troponin referred to Dr. Jasso; no new order. Urine output only 225 ml the whole shift; main IVF at 75 ml/H. Addendum: 01/08/21 at 0629 by JIL NAIDU RN Amended: Links added. Addendum: 01/08/21 at 0640 by JIL NAIDU RN Amended: Links added. Addendum: 01/08/21 at 0641 by JIL NAIDU RN Amended: Links added. Addendum: 01/08/21 at 0641 by JIL NAIDU RN Amended: Links added. Addendum: 01/08/21 at 0641 by JIL NAIDU RN Amended: Links added.
[2021-01-08 06:27] LABS: ABG BASE EXCESS -2.2 mmol/L; ABG HCO3 22.6 mmol/L; ABG PCO2 38.7 mmHg (35.0-45.0); ABG PH 7.385 (7.350-7.450); ABG PO2 128.9 mmHg (75.0-100.0); ABG SITE LEFT FEMORAL; ABG TOTAL HEMOGLOBIN 9.4 G/dL (13.5-18.0); COHb 0.9 % (0.5-1.5); MetHb 0.1 % (0.0-1.5); VENT MODE VENT - A/C; VT, ABG 450 mL
--- NOTE | 2021-01-08 07:20 | NUR ---
Received report from weight shifter nurse, patient in bed sedated on Propoforl 40mcg/kg/min on Jennifer vent a/c20, 7.5 tube, 22cm at the lipline, 450TV, Peep5, 50% fio2. Patient has jefferson catheter draining scant tea colored urine, central line in right groin, iv fluids @75cc/hr. Patient has suction at bedside, sinus rhythm on the monitor, hemodynamically stable. bed in low position, sdie rails up x2, head of bed elevated. SCD's on. All equipment, and monitors checked foir accuracy. Will continue to monitor.
--- NOTE | 2021-01-08 07:25 | NUR ---
Pt received on CMV with ordered settings of A/C 20, VT 450, PEEP +5, FIO2 40% . Tolerating vent settings well. No sign or symptoms of respiratory distress noted. Sxn'd small amount of thin bloody secretions. Oral care done. HME changed. FIO2 titrated down to 30% RN Cecile notified. BVM at bedside. Vent alarm parameters checked, on and audible. Will continue to monitor.
--- NOTE | 2021-01-08 07:30 | NUR ---
Vent settings, reduced fi02 to 45%.
[2021-01-08] MEDS: PIPERACILLIN SODIUM/TAZOBACTAM 3.37 G in IV DEXTROSE 5% 100 ML IV SCH ×3 (07:37→23:20)
[2021-01-08] MEDS: Z GUARD REMEDY PASTE 57 GM TUBE TOP SCH ×2 (08:56→20:35)
--- NOTE | 2021-01-08 09:10 | NUR ---
FIO2 decreased to 30%. Pt SPO2 100%. RN Cecile notified.
--- NOTE | 2021-01-08 09:12 | NUR ---
Vent reduced to 30% fio2.
[2021-01-08] MEDS: FAMOTIDINE. 20 MG/2 ML VIAL IV SCH ×2 (10:22→20:35)
--- NOTE | 2021-01-08 12:15 | NUR ---
Notified Dr. Erwin that patient has very little urine output since morning shift at 7am. 85cc total and that patient's blood pressure is borderline at this time. Awaiting response and orders.
--- NOTE | 2021-01-08 12:21 | NUR ---
Patients family requesting letter to send to [facility] that patient is in grave condition, and in the hospital so that daughter will be given permission to travel to [place] to see father.
--- NOTE | 2021-01-08 14:43 | NUR ---
Received order from Dr. Sharif for bolus 1L NS.
[2021-01-08] MEDS ORDERED: IV NS 1000 ML 1,000 ML IV ONE (14:45)
[2021-01-08 14:53] LABS: HEMATOCRIT 26.3 % (36.7-47.1); MEAN CORPUSCULAR HEMOGLOBIN 26.3 uug (23.8-33.4); PLATELET COUNT (AUTO) 238 K/uL (152-348)
[2021-01-08] MEDS ORDERED: NOREPINEPHRINE BITARTRATE 8 MG in IV NORMAL SALINE 242 ML IV PRN (16:30)
[2021-01-08] MEDS ORDERED: IV NORMAL SALINE 250 ML IV ONE ×2 (16:30)
--- NOTE | 2021-01-08 19:25 | NUR ---
PATIENT RECEIVED AN ADDITIONAL DOSE OF 500CC ns VIA iv PER DR. LOPEZ. CURRENTLY DOING ADEQUATELY ON VENT, HEMODYNAMICALLY STABLE, TABOR CATHETER INTACT, SCD'S ON, BED IN LOW POSITION, SIDE RAILS UP X2. NO DISTRESS NOTED AT THIS TIME, SEDATED ON PROPOFOL 40 MCG/KG/MIN.
--- NOTE | 2021-01-08 19:30 | NUR ---
Report received. Patient admitted 01/07/21 DX; Acute hypoxic respiratory failure. Orally intubated and to mechanical ventilator settings as follows: Ac=20, FIO2=30%, OK=225 ml and PEEP=5 cm. O2 sats 100%. Continuously sedated with Diprivan drip at 40 mcg/kg/min via R femoral TLC. Suctioned for small amounts of bloody secretions from ETT, with large clear oral secretions. Good cough reflex. Doesn't open eyes to name or pain but moves all extremities purposefully. night monitor: SR rate 70's. BP stable. Turned and repositioned; skin care provided. Mejia catheter to bedside bag draining clear yellow urine. Assessment done; please refer to ICU flow sheet for complete data. Addendum: 01/08/21 at 2023 by JIL NAIDU RN Amended: Links added.
[2021-01-08] MEDS: VANCOMYCIN IV 500 MG in IV DEXTROSE 5% 100 ML IV SCH (20:35)
--- NOTE | 2021-01-08 23:00 | NUR ---
Sedation vacation: After 5 minutes patient opens eyes to name, not following commands, due to language barrier?, bucking the vent and coughing. BP =123/63, HR= 85,SR. Suctioned for small thin bloody ETT secretions. With moderate clear oral secretions. Diprivan drip resumed at same rate 40 mcg/kg/min. Addendum: 01/08/21 at 8 by JIL NAIDU RN Amended: Links added. Addendum: 01/08/21 at 2318 by JIL NAIDU RN Amended: Links added. Addendum: 01/08/21 at 2319 by JIL NAIDU RN Amended: Links added. Addendum: 01/08/21 at 2319 by JIL NAIDU RN Amended: Links added. Addendum: 01/08/21 at 2319 by JIL NAIDU RN Amended: Links added.
[2021-01-08 23:09] LABS: HEMATOCRIT 27.2 % (36.7-47.1)
[2021-01-08] MEDS ORDERED: PIPERACILLIN SODIUM/TAZOBACTAM 4.5 G in IV DEXTROSE 5% 50 ML IV SCH (23:50)
[2021-01-09] VITALS (25 sets, daily range): BP systolic 85–135; BP diastolic 42–87
[2021-01-09] MEDS: PROPOFOL 100 ML IV PRN ×3 (02:10→22:56)
--- NOTE | 2021-01-09 04:00 | NUR ---
HR trending higher from 70's-90's SR. Temp=99.9. Skin warm and dry. Am bath given; skin care provided. Medicated with Tylenol via patent NGT. HOB elevated above 30 degrees at all times. BP 89/42. Will monitor for now. Addendum: 01/09/21 at 0602 by JIL NAIDU RN Amended: Links added.
[2021-01-09] MEDS: ACETAMINOPHEN 325 MG TABLET NG PRN (04:07)
[2021-01-09] MEDS: IV NS 1000 ML 1,000 ML IV PRN ×2 (04:09→17:36)
[2021-01-09 05:50] LABS: HEMATOCRIT 25.7 % (36.7-47.1); MEAN CORPUSCULAR HEMOGLOBIN 25.5 uug (23.8-33.4); PLATELET COUNT (AUTO) 286 K/uL (152-348)
[2021-01-09 06:01] LABS: ABG BASE EXCESS -6.9 mmol/L; ABG HCO3 17.5 mmol/L; ABG PCO2 31.1 mmHg (35.0-45.0); ABG PH 7.369 (7.350-7.450); ABG SITE LEFT RADIAL; ABG TOTAL HEMOGLOBIN 9.1 G/dL (13.5-18.0); MetHb 0.1 % (0.0-1.5); O2Hb 95.9 % (94.0-97.0); VENT MODE VENT - A/C; VT, ABG 450 mL
[2021-01-09 06:07] LABS: MAGNESIUM 1.8 mg/dL (1.8-2.4); PHOSPHOROUS 2.8 mg/dL (2.5-4.9); POTASSIUM 3.7 mmol/L (3.5-5.1)
--- NOTE | 2021-01-09 06:22 | NUR ---
Condition unchanged. BPs 90's-100's systole. bead flipper: SR rate 80's. Remains on Diprivan drip at 40 mcg/kg/min. O2 sats 96-100% on FIO2=30%. Still with small to moderate amounts of bloody secretions from ETT. Urine gbcglc=624 ml x 12 hours. Addendum: 01/09/21 at 0625 by JIL NAIDU RN Amended: Links added.
--- NOTE | 2021-01-09 07:42 | NUR ---
Received report from organic lab worker nurse, patient in bed sedated on propofol 40 mcg/kg/min, on vent ac mode. saturation 100%. Hemodynamically stable. Sinus rhythm on the monitor. NG tube with no residual, jefferson catheter intact. SCD's on. Bed in low position, side rails up x2. WIll continue to monitor.
[2021-01-09] MEDS: PIPERACILLIN SODIUM/TAZOBACTAM 3.37 G in IV DEXTROSE 5% 100 ML IV SCH ×2 (07:59→15:50)
[2021-01-09] MEDS: FAMOTIDINE. 20 MG/2 ML VIAL IV SCH ×2 (08:00→20:49)
[2021-01-09] MEDS: Z GUARD REMEDY PASTE 57 GM TUBE TOP SCH ×2 (08:00→20:50)
[2021-01-09] MEDS ORDERED: VITAL AF 1.2 1,000 ML LIQUID GT PRN (11:30)
[2021-01-09] MEDS: VITAL AF 1.2 1,000 ML LIQUID GT PRN (12:48)
[2021-01-09 15:20] LABS: MEAN CORPUSCULAR HEMOGLOBIN 25.7 uug (23.8-33.4); MEAN CORPUSCULAR VOLUME 81.5 fL (73.0-96.2); PLATELET COUNT (AUTO) 280 K/uL (152-348)
--- NOTE | 2021-01-09 15:30 | NUR ---
Notified Criselda HARRY for Dr. Julien that patients CBC came back with a hemoglobin level of 7.9. Reported that the suction is only pink tinged for most of the day and was asked to hold transfusion of PRBC's at this time. Dr. Julien will re-evaluate and place order accordingly if indicated during rounding.
--- NOTE | 2021-01-09 15:31 | NUR ---
Pt received on full vent support settings of A/C 20, VT 450, PEEP +5, FIO2 30% . Tolerating vent settings well. No sign or symptoms of respiratory distress noted. Sxn'd small amount of thin bloody secretions. Oral care done. BVM at bedside. Vent alarms audible, checkd and reset. Will continue to monitor and report any changes.
--- NOTE | 2021-01-09 19:30 | NUR ---
Pt rec'd on vent settings AC 20, VT 450, FIO2-30%, PEEP +5. No resp. distress noted. 7.5 ETT is patent and secure at approx. 22cm at the lip.
--- NOTE | 2021-01-09 19:53 | NUR ---
Dr. Julien in unit to see and assess patient. Given update as to patient status + h/h levels. No orders to transfuse at this time - will wait and monitor.
--- NOTE | 2021-01-09 20:25 | NUR ---
Patient put on bilateral soft wrist restraints at this time. Patient was reaching for his ET Tube - I am unable to increase propofol due to borderline MAP at this time. To prevent self-extubation - patient placed on soft restraints.
[2021-01-09] MEDS: VANCOMYCIN IV 500 MG in IV DEXTROSE 5% 100 ML IV SCH (20:49)
[2021-01-09 23:58] LABS: HEMATOCRIT 28.5 % (36.7-47.1); MEAN CORPUSCULAR HEMOGLOBIN 25.8 uug (23.8-33.4); MEAN CORPUSCULAR VOLUME 82.9 fL (73.0-96.2); PLATELET COUNT (AUTO) 283 K/uL (152-348)
[2021-01-10] VITALS (24 sets, daily range): BP systolic 101–149; BP diastolic 47–92
[2021-01-10] MEDS: PIPERACILLIN SODIUM/TAZOBACTAM 3.37 G in IV DEXTROSE 5% 100 ML IV SCH ×3 (00:22→15:42)
[2021-01-10 05:15] LABS: ABG BASE EXCESS -6.1 mmol/L; ABG HCO3 17.9 mmol/L; ABG PCO2 29.5 mmHg (35.0-45.0); ABG PH 7.401 (7.350-7.450); ABG PO2 115.8 mmHg (75.0-100.0); ABG SITE RIGHT RADIAL; ABG TOTAL HEMOGLOBIN 8.2 G/dL (13.5-18.0); MetHb 0.3 % (0.0-1.5); O2Hb 97.2 % (94.0-97.0); VENT MODE VENT - A/C; VT, ABG 450 mL
--- NOTE | 2021-01-10 05:25 | NUR ---
ABG done and no changes made per RN LISS. No resp. distress noted.
[2021-01-10 05:34] LABS: HEMATOCRIT 24.9 % (36.7-47.1); MEAN CORPUSCULAR VOLUME 82.2 fL (73.0-96.2); PLATELET COUNT (AUTO) 286 K/uL (152-348)
[2021-01-10 05:44] LABS: MAGNESIUM 1.9 mg/dL (1.8-2.4); PHOSPHOROUS 2.8 mg/dL (2.5-4.9); POTASSIUM 3.5 mmol/L (3.5-5.1)
--- NOTE | 2021-01-10 06:23 | NUR ---
Patient status relatively unchanged. Well sedated. Gag + cough reflex present. PERRLA. Sinus rhythm w/ PACs (minimal). BPs maintained at appropriate levels. Afebrile. Vent settings unchanged. ABGs show PO2 of 115.8 - can likely titrate FIO2 down. No signs of labored breathing. GI/: no bowel movement despite NGT feeding running at ordered levels/time. Urine output 850cc - yellow/clear. Misc: Propofol titrated up to 40mcgs as patient is much too alert and active at 30mcg (bucking vent, kicking legs, nearly self extubating). Soft wrist restraints applied until adequately sedated to prevent self-extubation. Neuro-checks done at appropriate levels. All lines patent.
[2021-01-10] MEDS: IV NS 1000 ML 1,000 ML IV PRN ×2 (07:13→20:34)
--- NOTE | 2021-01-10 07:25 | NUR ---
Received report from steward/stewardess night nurse, patient continues to be on propofol with mild agitation (increased to 50mcg/kg/min). Ventilator is on a/c mode 20 breaths per minute, TV 450, Peep 5, 30% fio2. SInus rhythm on the monitor, jefferson intact, bed in low position, side rails up x2. Air mattress inflated ,and scd's on.
[2021-01-10] MEDS: FAMOTIDINE. 20 MG/2 ML VIAL IV SCH ×2 (08:08→20:03)
[2021-01-10] MEDS: Z GUARD REMEDY PASTE 57 GM TUBE TOP SCH ×2 (08:08→20:04)
[2021-01-10] MEDS: PROPOFOL 100 ML IV PRN ×2 (08:18→16:40)
[2021-01-10] MEDS: VITAL AF 1.2 1,000 ML LIQUID GT PRN (08:54)
--- NOTE | 2021-01-10 09:37 | NUR ---
PT RECEIVED ON VENT WITH SETTINGS AC20/VT 450/+5 PEEP/30%. PT APPEARS COMFORTABLE TOLERATING CURRENT SETTINGS FINE WITH NO DISTRESS. ETT SECURED AND AIRWAY PATENT. ORAL CARE DONE. WILL CONTINUE TO MONITOR
[2021-01-11] VITALS (24 sets, daily range): BP systolic 91–145; BP diastolic 51–91
[2021-01-11] MEDS: PIPERACILLIN SODIUM/TAZOBACTAM 3.37 G in IV DEXTROSE 5% 100 ML IV SCH ×4 (00:21→23:10)
[2021-01-11] MEDS: PROPOFOL 100 ML IV PRN ×3 (04:44→22:22)
[2021-01-11 05:06] LABS: HEMATOCRIT 28.6 % (36.7-47.1); MEAN CORPUSCULAR HEMOGLOBIN 26.6 uug (23.8-33.4); MEAN CORPUSCULAR VOLUME 83.1 fL (73.0-96.2); PLATELET COUNT (AUTO) 316 K/uL (152-348)
[2021-01-11 05:12] LABS: MAGNESIUM 1.9 mg/dL (1.8-2.4); PHOSPHOROUS 2.4 mg/dL (2.5-4.9); POTASSIUM 3.1 mmol/L (3.5-5.1)
[2021-01-11 06:06] LABS: ABG BASE EXCESS -5.7 mmol/L; ABG HCO3 18.5 mmol/L; ABG PCO2 31.2 mmHg (35.0-45.0); ABG PO2 87.4 mmHg (75.0-100.0); ABG SITE RIGHT RADIAL; ABG TOTAL HEMOGLOBIN 9.2 G/dL (13.5-18.0); COHb 1.1 % (0.5-1.5); MetHb 0.3 % (0.0-1.5); O2Hb 95.7 % (94.0-97.0); VENT MODE VENT - A/C; VT, ABG 450 mL
--- NOTE | 2021-01-11 06:31 | NUR ---
Patients status relatively unchanged. Sedated on Propofol 40mcg. Gag + cough reflex + opens eyes to stimulation. No cardiac events. BP stable without pressors. Afebrile. Vent settings unchanged. ABGs show improvement. Copious amounts of oral secretions. GI/: Tolerating tube feedings well - almost no residuals. 700cc urine output - yellow/green - ordered Triglyceride levels to be checked. No bowel movement.
[2021-01-11] MEDS ORDERED: POTASSIUM PHOSPHATE MM 15 MMOL in IV NORMAL SALINE 250 ML IV ONE (07:30)
[2021-01-11] MEDS: FAMOTIDINE 20 MG TABLET GT SCH ×2 (08:03→20:14)
[2021-01-11] MEDS: Z GUARD REMEDY PASTE 57 GM TUBE TOP SCH ×2 (08:04→20:14)
[2021-01-11] MEDS: POTASSIUM PHOSPHATE MM 7.5 MMOL in IV NORMAL SALINE 97.5 ML IV SCH ×2 (08:20→11:27)
[2021-01-11] MEDS: IV NS 1000 ML 1,000 ML IV PRN (09:21)
--- NOTE | 2021-01-11 09:26 | NUR ---
Received patient sedated on 40 mcg/kg/min of propofol. On vent a/c 20, TV 450, Fio2 30%, PEEP 5 - minimal amount of thin pinkish-osei secretions through the ET tube. Copious amount of oral secretions suctioned. Hemodynamically stable. Tube feeding turned back on at 0900 with minimal residuals aspirated. HOB elevated to 35 degrees. Mejia catheter draining well. Triple lumen femoral line flushed and patent. Will continue to monitor.
--- NOTE | 2021-01-11 09:30 | NUR ---
Vent setting changed during RT morning rounds: A/C 16, TV 450, FiO2 30%, PEEP 5
--- NOTE | 2021-01-11 11:26 | NUR ---
Development Chemist note: This SOFTWARE INTEGRATION DEVELOPER was informed by Dr. Erwin that a condition letter was requested by the family. This SOFTWARE INTEGRATION DEVELOPER prepared the letter. Letter was reviewed and signed by Dr. Erwin. This SOFTWARE INTEGRATION DEVELOPER provided the letter to UBALDO Blanco, who will provide it to the family upon their visit. A copy of the letter was filed in patient's chart.
--- NOTE | 2021-01-11 11:33 | NUR ---
Patient had BM x 1, very loose, watery stool. Will notify
[2021-01-11] MEDS: POTASSIUM CHLORIDE 50 ML IV SCH ×3 (12:07→13:58)
--- NOTE | 2021-01-11 12:15 | NUR ---
Daughter Bettina and granddaughters at bedside. Letter requested from social work given to Bettina.
--- NOTE | 2021-01-11 14:30 | NUR ---
Patient had another very loose, watery BM. Flexiseal placed and draining RE: skin protection.
--- NOTE | 2021-01-11 17:51 | NUR ---
Sedation Vacation: At the request of the family, sedation vacation done with family present. Patient opens his eyes to name after 5 min. Remained calm and responsive to family. BP-124/65, HR-84, RR-22, SpO2-98%. Suctioned orally (large amount of moderately thick, clear secretions) and through ETT (small osei secretions). Propofol resumed to 40 mcg/kg/min.
--- NOTE | 2021-01-11 19:30 | NUR ---
Received patient orally intubated and to ventilator with settings: AC=16, FIO2=30%, IB=322 ml and PEEP= 5 cm. O2 sat 98-100%. NAD noted. Grimaces to pain such as suctioning and turning but doesn't open eyes. Moves extremities to pain and purposefully. On continuous Diprivan drip for sedation at 50 mcg/kg/min via R Femoral TLC. Suctioned for thin beige pinkish secretions from ETT. Oral care done. With large amounts of clear oral secretions. Good cough reflex. Turned and repositioned; skin care provided. NGT patent; only 10 ml residuals when checked. Vital AF feedings resumed at 40 ml/H. Assessment completed. Addendum: 01/11/21 at 2008 by JIL NAIDU RN Amended: Links added.
[2021-01-12] VITALS (32 sets, daily range): BP systolic 96–148; BP diastolic 47–79
--- NOTE | 2021-01-12 00:10 | NUR ---
Coughing, mildly agitated, grimacing. HR 102, PACS in bigeminy. BP stable. Diprivan drip increases back up to 50 mcg/kg/min. Medicated with Tylenol via NGT for generalized discomfort. Feedings increased to 45 ml/H; 0 residuals.
[2021-01-12] MEDS: IV NS 1000 ML 1,000 ML IV PRN ×2 (00:14→15:24)
[2021-01-12] MEDS: ACETAMINOPHEN 325 MG TABLET NG PRN ×2 (00:25→18:32)
--- NOTE | 2021-01-12 03:45 | NUR ---
Patient has episodes of desaturation, Sat 88-90%. Suctioned. With difficulty passing down the suction catheter. RT aware. Suctioned and lavaged by Yash DOMINGUEZ. With small to moderate amounts of beige pinkish ETT secretions. Still with some resistance when passing down the suction catheter, ETT positional? Patient repositioned. HOB above 30 degrees at all times. BP stable. Addendum: 01/12/21 at 0415 by JIL NAIDU RN Amended: Links added.
--- NOTE | 2021-01-12 04:30 | NUR ---
Diprivan drip titrated down Q30 minutes. Patient is for CPAP this am. No further episodes of desaturation after repositioning. O2 sats above 94%. Addendum: 01/12/21 at 0452 by JIL NAIDU RN Amended: Links added.
[2021-01-12 05:11] LABS: HEMATOCRIT 26.4 % (36.7-47.1); MEAN CORPUSCULAR HEMOGLOBIN 25.6 uug (23.8-33.4); MEAN CORPUSCULAR VOLUME 81.4 fL (73.0-96.2); PLATELET COUNT (AUTO) 292 K/uL (152-348)
--- NOTE | 2021-01-12 05:45 | NUR ---
Yash DOMINGUEZ here. Patient placed on CPAP PS=8. Diprivan drip turned off. Patient grimaces to pain but doesn't open eyes. Monitored closely. EKG remains SR rate 90's. Addendum: 01/12/21 at 0554 by JIL NAIDU RN Amended: Links added.
--- NOTE | 2021-01-12 05:55 | NUR ---
O2 saturation 90-91%. FIO2 increased to 40% by RT. Will continue to monitor closely.
[2021-01-12 06:21] LABS: CREATININE 0.8 mg/dL (0.6-1.3); MAGNESIUM 1.9 mg/dL (1.8-2.4); PHOSPHOROUS 2.7 mg/dL (2.5-4.9); POTASSIUM 3.7 mmol/L (3.5-5.1)
--- NOTE | 2021-01-12 06:39 | NUR ---
Remains on CPAP, O2 sats 98-100% on 40% FIO2. ABGs drawn by RT. Patient tachycardic with frequent PACs. BP stable.
[2021-01-12 06:45] LABS: ABG HCO3 19.8 mmol/L; ABG PCO2 35.2 mmHg (35.0-45.0); ABG PH 7.367 (7.350-7.450); ABG PO2 121.5 mmHg (75.0-100.0); ABG SITE RIGHT RADIAL; ABG TOTAL HEMOGLOBIN 9.8 G/dL (13.5-18.0); COHb 0.9 % (0.5-1.5); CPAP,BG 8 cmH20; MetHb 0.3 % (0.0-1.5); O2Hb 97.5 % (94.0-97.0)
--- NOTE | 2021-01-12 06:51 | NUR ---
Monitor: ST rate 115 with PACs in [facility]. Patient waking up but calm. RR 20-23/min, NJ=155/64. ABGs good. Call placed to Dr. Smith; awaiting call back. Will continue to monitor closely.
--- NOTE | 2021-01-12 07:25 | NUR ---
Dr. Cobb called back; updated of patient's condition. Ordered to leave patient on CPAP for now and MD will be in soon.
[2021-01-12 08:07] LABS: VENT MODE VENT - CPAP - PS 8
[2021-01-12] MEDS: FAMOTIDINE 20 MG TABLET GT SCH ×2 (08:30→20:27)
[2021-01-12] MEDS: Z GUARD REMEDY PASTE 57 GM TUBE TOP SCH ×2 (08:32→20:27)
[2021-01-12] MEDS: PIPERACILLIN SODIUM/TAZOBACTAM 3.37 G in IV DEXTROSE 5% 100 ML IV SCH ×2 (08:32→15:34)
[2021-01-12] MEDS: PROPOFOL 100 ML IV PRN ×2 (10:28→20:26)
[2021-01-12] MEDS: NUTRISOURCE FIBER 4 GM PACKET GT SCH ×2 (13:18→18:13)
--- NOTE | 2021-01-12 18:30 | NUR ---
Notified Dr. Max that patient has a temp of 100.5. awaiting orders
--- NOTE | 2021-01-12 19:15 | NUR ---
CHECKED TEMP 98.8 F ORALLY AND VIA ARMPIT 99.2 F, BUT DURING THE DAY SHIFT PATIENT HAD A LOW GRADE TEMP 100.5 F ,BLOOD CULTURE DONE 1ST SAMPLE TAKEN FROM THE RIGHT FEMORAL AND NO 2 SAMPLE VIA PERIPHERAL .NO NEED FOR VANCOMYCIN TROUGH PATIENT NO LONGER ON VANCO.
--- NOTE | 2021-01-12 19:45 | NUR ---
CHECKED NGT TUBE PATENT TOLERATING TUBE FEEDINGS ON VITAL AF 1.2 AT 45 ML/HR RESIDUAL VERY MINIMAL 10 ML INCREASES TUBE FEEDINGS TO 50 ML /HR.FLUSED NGT AND ASPIRATION PRECAUTION OBSERVED . HOB UP.
--- NOTE | 2021-01-12 20:30 | NUR ---
TURNED AND REPOSITION PATIENT .OFFLOADED BACK AND EXTREMITIES ELEVATED WITH PILLOWS . SUCTION VIA THE ETT AND VIA MOUTH .
--- NOTE | 2021-01-12 23:25 | NUR ---
LAB CALLED PCR NEGATIVE.
[2021-01-13] VITALS (31 sets, daily range): BP systolic 91–183; BP diastolic 48–99
--- NOTE | 2021-01-13 02:00 | NUR ---
AM CARE DONE .BATH PATIENT .CHANGED SOILED LINENS AND GOWN .APPLIED Z GUARD TO SACRAL AREA .F/C DONE .
--- NOTE | 2021-01-13 03:47 | NUR ---
PATIENT ON CONT JOHNSON VENT WITH 7.5 ET/TUBE IN PLACE AND SECURED WITH ANCHOR FAST, MOVE Q2 HOURS, VENT SETTINGS, A/C 16, CT 450ML, PEEP 5, FIO2 @ 30%, PT DOES ASSIST AT TIMES , SUCTIONED SLIGHT BLOODY TINGE SECRETIONS, AND ORAL SUCTION, WITH MARIE PANCHAL, CPT X 1 TO RIGHT CHEST ANTERIOR, ALL ALARMS GOOD, WEANING IN AM ON TRIAL CPAP MODE WITH PSV 8, THEN FOLLOW WITH ABG AFTER AN HOUR, AMBU BAG AT BEDSIDE, VENT PLUGGED INTO RED OUTLET, CHANGE HME. Antoine MEHTAP Addendum: 01/13/21 at 0352 by ERNESTINE QUINTERO RT Amended: Links added.
[2021-01-13] MEDS: PROPOFOL 100 ML IV PRN ×3 (04:14→20:14)
[2021-01-13] MEDS: IV NS 1000 ML 1,000 ML IV PRN ×2 (04:47→16:52)
[2021-01-13 05:06] LABS: HEMATOCRIT 27.9 % (36.7-47.1); MEAN CORPUSCULAR HEMOGLOBIN 25.4 uug (23.8-33.4); MEAN CORPUSCULAR VOLUME 81.5 fL (73.0-96.2); PLATELET COUNT (AUTO) 304 K/uL (152-348)
[2021-01-13 05:19] LABS: BILIRUBIN,TOTAL 0.2 mg/dL (0.2-1.0); CREATININE 0.8 mg/dL (0.6-1.3); MAGNESIUM 1.8 mg/dL (1.8-2.4); PHOSPHOROUS 2.3 mg/dL (2.5-4.9); POTASSIUM 3.5 mmol/L (3.5-5.1); TOTAL PROTEIN, SERUM 5.7 g/dL (6.4-8.2)
--- NOTE | 2021-01-13 05:35 | NUR ---
OFF SEDATION PROPOFOL RESPIRATORY THERAPIST PLACED PATIENT ON CPAP PS =8.
--- NOTE | 2021-01-13 06:31 | NUR ---
: PETRONA AWARE ABOUT PATIENT LABS .DICTATED VIA PHONE .
--- NOTE | 2021-01-13 06:32 | NUR ---
TOLERATING CPAP . SATURATION 94% RR 28 HR 112.
[2021-01-13 06:36] LABS: ABG BASE EXCESS -3.3 mmol/L; ABG PCO2 34.7 mmHg (35.0-45.0); ABG PO2 70.2 mmHg (75.0-100.0); ABG SITE LEFT RADIAL; ABG TOTAL HEMOGLOBIN 9.9 G/dL (13.5-18.0); COHb 1.1 % (0.5-1.5); CPAP,BG 8 cmH20; MetHb 0.2 % (0.0-1.5); O2Hb 92.7 % (94.0-97.0); VENT MODE VENT - CPAP
--- NOTE | 2021-01-13 07:40 | NUR ---
PATIENT RR 34 TO 38 AND HR 150 TO 160 SATURATION 90% ,PATIENT OPEN EYES BUT DOESN'T FOLLOW COMMANDS VERY RESTLESS.RESPIRATORY THERAPIST PLACED BACK PATIENT TO AC MODE .
--- NOTE | 2021-01-13 08:10 | NUR ---
CALLED RESPIRATORY THERAPIST FOR A STAT EKG . PATIENT IN AND OUT AFIB RATE 150 TO 160.
[2021-01-13] MEDS: FAMOTIDINE 20 MG TABLET GT SCH ×2 (08:24→20:17)
[2021-01-13] MEDS: NUTRISOURCE FIBER 4 GM PACKET GT SCH ×3 (08:24→16:52)
[2021-01-13] MEDS: Z GUARD REMEDY PASTE 57 GM TUBE TOP SCH ×2 (08:25→20:17)
[2021-01-13] MEDS: VITAL AF 1.2 1,000 ML LIQUID GT PRN (08:27)
--- NOTE | 2021-01-13 08:29 | NUR ---
PATIENT CONVERTED TO SR TO ST RATE 112 CALLED FABI SHAH AND FOR NOW TO HOLD THE CARDIZEM AND AMIODARONE DRIP TO CONTINUE TO MONITOR PATIENT .
[2021-01-13] MEDS ORDERED: AMIODARONE HCL IV 150 MG in IV DEXTROSE 5% 100 ML IV ONE (08:30)
[2021-01-13] MEDS ORDERED: DILTIAZEM HCL 25 MG IV IV ONE (08:30)
[2021-01-13] MEDS ORDERED: POTASSIUM CHLORIDE 20 MEQ POWDER PACKET GT ONE (08:30)
--- NOTE | 2021-01-13 08:30 | NUR ---
:ALONSO AT B/S AND UPDATED WITH PATIENT STATUS AND CONDITION.
[2021-01-13] MEDS ORDERED: POTASSIUM PHOSPHATE MM 15 MMOL in IV NORMAL SALINE 250 ML IV ONE (09:00)
--- NOTE | 2021-01-13 10:28 | NUR ---
DR: PABLO AT B/S AND UPDATED WITH PATIENTS CONDITION V/S AND HEART RHYTHM,AWARE CARDIZEM AND AMIODARONE DRIP NOT STARTED PATIENT NOW SR RHYTHM RATE 92.
--- NOTE | 2021-01-13 12:30 | NUR ---
WIRE FENCE BUILDER :REGINA CAME AND VISITED PATIENT .
--- NOTE | 2021-01-13 13:06 | NUR ---
PATIENTS FAMILY MEMBERS CAME AND UPDATED DAUGHTER AND PATIENTS WITH VENTS/V/S AND PLAN OF TREATMENT .
--- NOTE | 2021-01-13 15:30 | NUR ---
Report received. Patient orally intubated and on the ventilator settings as follows: AC=16, ID=[id number], FIO2=35% and PEEP=5cm. O2 saturations=94-100%. Opens eyes to persistent name calls. Moves extremities to pain and purposefully. Suctioned for large amount of clear oral secretions. ETT secretions bloody tinged. With good cough reflex. Grimaces to pain. On continuous Diprivan drip for sedation. Turned and repositioned; skin care provided. Assessment completed. Medicated with Tylenol for generalized discomfort. Addendum: 01/13/21 at 1719 by JIL NAIDU RN Amended: Links added. Addendum: 01/13/21 at 1721 by JIL NAIDU RN Amended: Links added.
[2021-01-13] MEDS: ACETAMINOPHEN 325 MG TABLET NG PRN ×2 (15:44→21:23)
[2021-01-13] MEDS ORDERED: NEUTRA PHOS PACKET GT ONE (15:45)
--- NOTE | 2021-01-13 16:19 | NUR ---
Dr. Jasso notified of patient's IVF rate and tube feedings at 55ml/H. Ordered to decrease IVF rate to 50 ml/H. Addendum: 01/13/21 at 1721 by JIL NAIDU RN Amended: Links added.
--- NOTE | 2021-01-13 17:00 | NUR ---
called received per Dr. Cobb. He will have a family meeting tomorrow at 0730 make sure family is able to come in at this time to meet with Dr. Cobb.
--- NOTE | 2021-01-13 17:24 | NUR ---
Continues to grimace and requires frequent oral suctioning. cafeteria monitor: ST with PACs. Order received for Morphine IV PRN. Medicated for discomfort. Addendum: 01/13/21 at 1842 by JIL NAIDU RN Amended: Links added.
[2021-01-13] MEDS: MORPHINE SULFATE 2 MG/1 ML DISP.SYRIN IV PRN ×2 (17:36→21:43)
--- NOTE | 2021-01-13 18:15 | NUR ---
Family here to visit. Daughter Carol updated of patient's condition. Yonathan calvillo titrated down per family requests to allow for patient to wake up and respond to them. Patient monitored closely. Addendum: 01/13/21 at 1854 by JIL NAIDU RN Amended: Links added. Addendum: 01/13/21 at 1857 by JIL NAIDU RN Amended: Links added. Addendum: 01/13/21 at 1857 by JIL TAECHARATKIJ RN Amended: Links added. Addendum: 01/13/21 at 1858 by JIL NAIDU RN Amended: Links added. Addendum: 01/13/21 at 1858 by JIL NAIDU RN Amended: Links added. Addendum: 01/13/21 at 1858 by JIL NAIDU RN Amended: Links added. Addendum: 01/13/21 at 1858 by JIL NAIDU RN Amended: Links added. Addendum: 01/13/21 at 1858 by JIL NAIDU RN Amended: Links added. Addendum: 01/13/21 at 1859 by JIL NAIDU RN Amended: Links added.
--- NOTE | 2021-01-13 18:40 | NUR ---
Patient started opening eyes as daughter and talk to him. HR: 103-105 ST. O2 sat 94%, RR=21-24/min.
--- NOTE | 2021-01-13 19:00 | NUR ---
Back on Diprivan drip at 50 mcg/kg/min for adequate sedation when family left. Turned and repositioned. HOB elevated above 30 degrees at all times. Tolerating NGT feedings at 55 ml/H.
--- NOTE | 2021-01-13 20:10 | NUR ---
Seen by Dr. Jasso. No new orders.
--- NOTE | 2021-01-13 20:25 | NUR ---
Family visited again. Daughter requests Diprivan drip titrated down. Advised appropriately. Patient opens eyes, HR up to 113, ST and RR 23.
--- NOTE | 2021-01-13 21:00 | NUR ---
More family members visiting. Patient opens eyes and appears responding to family but HR up to 120's with frequent PACs, BP 164/89, O2 sat 92% and RR 25 bpm. Family advised appropriately. Diprivan drip back to 50 mcg/kg/min from 10mcg during family visit as requested by daughter. Addendum: 01/13/21 at 2115 by JIL NAIDU RN Amended: Links added.
--- NOTE | 2021-01-13 21:25 | NUR ---
Received pt on continuous vent AC 16 VT 450 Peep 5 Fio2 35%. ETT 7.5 secured at 22cm lip line via anchor fast. Suction lavage prn. vent checked,alarms working well and audible. No vent changes made at this time. No distress noted at this time. Will continue to monitor.
--- NOTE | 2021-01-13 21:43 | NUR ---
Medicated with Morphine IV for generalized discomfort.
--- NOTE | 2021-01-13 23:00 | NUR ---
Patient with periods of desaturation. Suctioned PRN. Morphine effective. FIO2 increased to 50% by Hakeem DOMINGUEZ. Will monitor closely.
[2021-01-14] VITALS (32 sets, daily range): BP systolic 82–129; BP diastolic 45–65
--- NOTE | 2021-01-14 | NUR ---
Am bath given; skin care provided. Temp=98.7. Suctioned for small amounts of bloody tinged ETT secretions. Slight difficulty passing down suction catheter noted. With large amounts of oral secretions. Addendum: 01/14/21 at 0114 by JIL NAIDU RN Amended: Links added. Addendum: 01/14/21 at 0122 by JIL NAIDU RN Amended: Links added.
--- NOTE | 2021-01-14 01:00 | NUR ---
FIO2 increased to 60% by RT to keep saturations 94% and above.
[2021-01-14] MEDS: MORPHINE SULFATE 2 MG/1 ML DISP.SYRIN IV PRN ×4 (02:47→18:11)
[2021-01-14] MEDS: ACETAMINOPHEN 325 MG TABLET NG PRN ×2 (03:24→19:44)
--- NOTE | 2021-01-14 03:45 | NUR ---
RT here; O2 saturations 91-92%. FIO2 increased to 70%. Suctioned for small bloody tinged secretions from ETT. Tylenol given at 0324 for Temp=99.2. Will continue to monitor closely. Addendum: 01/14/21 at 0454 by JIL NAIDU RN Amended: Links added. Addendum: 01/14/21 at 0504 by JIL NAIDU RN Amended: Links added.
--- NOTE | 2021-01-14 04:20 | NUR ---
O2 saturations don't hold up above 94%. FIO2 increased to 100% by RT. Saturations improved. Addendum: 01/14/21 at 0504 by JIL NAIDU RN Amended: Links added.
[2021-01-14] MEDS: PROPOFOL 100 ML IV PRN ×3 (04:38→20:42)
--- NOTE | 2021-01-14 05:00 | NUR ---
BP down to 82/55. Diprivan drip decreased to 40 mcg/kg/min. Remains ST with rare to frequent PACs on the monitor. Addendum: 01/14/21 at 0613 by JIL NAIDU RN Amended: Links added.
--- NOTE | 2021-01-14 05:20 | NUR ---
ABGs drawn. Patient continues to be hemodynamically unstable.
[2021-01-14 05:21] LABS: ABG BASE EXCESS -5.5 mmol/L; ABG HCO3 20.5 mmol/L; ABG PCO2 42.1 mmHg (35.0-45.0); ABG PH 7.305 (7.350-7.450); ABG PO2 168.9 mmHg (75.0-100.0); ABG SITE RIGHT RADIAL; COHb 0.5 % (0.5-1.5); MetHb 0.1 % (0.0-1.5); O2Hb 98.8 % (94.0-97.0); VENT MODE VENT - A/C; VT, ABG 450 mL
--- NOTE | 2021-01-14 05:35 | NUR ---
ABG results called to Dr. Cobb; no orders. Patient's BP improved with Diprivan drip at 40 mcg/kg/min.
[2021-01-14 05:47] LABS: HEMATOCRIT 28.1 % (36.7-47.1); MEAN CORPUSCULAR HEMOGLOBIN 25.5 uug (23.8-33.4); PLATELET COUNT (AUTO) 293 K/uL (152-348)
[2021-01-14 05:52] LABS: CREATININE 0.8 mg/dL (0.6-1.3); MAGNESIUM 1.8 mg/dL (1.8-2.4); PHOSPHOROUS 3.7 mg/dL (2.5-4.9); POTASSIUM 4.2 mmol/L (3.5-5.1)
--- NOTE | 2021-01-14 06:53 | NUR ---
Condition unchanged; hemodynamically labile. Diprivan drip at 40 mcg/kg/min. Urine yzrecl=[id number] x 12 H. Tolerating NGT feedings at 55 ml/H; off [id number].
--- NOTE | 2021-01-14 07:42 | NUR ---
Recieved pt on Cont. JOHNSON vent with current settings of AC 16, VT 450, PEEP +5, 100% Fio2. Oral care and sxn done. Alarms checked, on and audible. BVM at bedside. Will continue to monitor t/o shift.
--- NOTE | 2021-01-14 08:11 | NUR ---
Family meeting with Dr. Cobb about patient prognosis and code status. See MD notes for new order.
[2021-01-14] MEDS: FAMOTIDINE 20 MG TABLET GT SCH ×2 (08:23→20:41)
[2021-01-14] MEDS: Z GUARD REMEDY PASTE 57 GM TUBE TOP SCH ×2 (08:24→20:44)
[2021-01-14] MEDS: VITAL AF 1.2 1,000 ML LIQUID GT PRN (08:24)
[2021-01-14] MEDS: NUTRISOURCE FIBER 4 GM PACKET GT SCH ×3 (08:25→17:00)
--- NOTE | 2021-01-14 08:35 | NUR ---
Aspirated 120 cc of tube feeding residual. Will keep tube feeding off at this time and recheck at a later time to resume tube feeding.
--- NOTE | 2021-01-14 09:27 | NUR ---
HR up to the 150-160s. Press Operator Printing notified. New orders received at this time.
--- NOTE | 2021-01-14 09:30 | NUR ---
EKG result: uncontrolled afib, per network security architect. Order for amiodarone bolus and drip per protocol received and implemented.
[2021-01-14] MEDS ORDERED: AMIODARONE HCL IV 150 MG in IV DEXTROSE 5% 100 ML IV ONE (09:45)
[2021-01-14] MEDS: AMIODARONE HCL IV 450 MG in IV DEXTROSE 5% 250 ML IV PRN ×2 (10:08→18:40)
--- NOTE | 2021-01-14 12:22 | NUR ---
Received phone call from Daughter Bettina regarding family decision to terminally extubate tomorrow at 5am. MD made aware. Family also wish to be at bedside during this time. Admin made aware and approved for family to remain at bedside.
[2021-01-14] MEDS: IV NS 1000 ML 1,000 ML IV PRN (13:07)
--- NOTE | 2021-01-14 14:02 | NUR ---
Patient's and two daughters at bedside. Request to give patient a partial bed bath as part of their cultural tradition. Patient desaturated with elevated HR when attempting to reposition. Family allowed to continue with parts of the body that is accessible without repositioning under RN supervision.
--- NOTE | 2021-01-14 15:30 | NUR ---
Aspirated 50 cc of residual of tube feeding. Will keep tube feeding off at this time.
--- NOTE | 2021-01-14 19:30 | NUR ---
Report received. Patient admitted 01/07/21 DX: Acute respiratory Failure, metastatic lung CA. With oral ETT to mechanical ventilator settings: AC=16, IYL4=420%, PEEP=5 cm and QB=907if. Sedated, on continuous Diprivan drip at 50 mcg/kg/min via R Femoral TLC. O2 sat 91-92%. Doesn't open eyes to pain, extremities flaccid. Temp=99.8 orally. Tylenol given via patent NGT. Residuals= 60 ml. Will continue to hold feedings for now. Suctioned for scant beige thin secretions from ETT. No cough or gag reflexes. custom tailor ST rate 102-105; on Amiodarone drip at 0.5 mg/min. Assessment done; see flow sheet for details. Addendum: 01/14/21 at 2117 by JIL NAIDU RN Amended: Links added. Addendum: 01/14/21 at 2117 by JIL NAIDU RN Amended: Links added. Addendum: 01/14/21 at 2118 by JIL NAIDU RN Amended: Links added. Addendum: 01/14/21 at 2118 by JIL NAIDU RN Amended: Links added. Addendum: 01/14/21 at 2118 by JIL NAIDU RN Amended: Links added. Addendum: 01/14/21 at 2120 by JIL NAIDU RN Amended: Links added. Addendum: 01/14/21 at 2120 by JIL NAIDU RN Amended: Links added. Addendum: 01/14/21 at 2120 by JIL NAIDU RN Amended: Links added. Addendum: 01/14/212120 by JIL NAIDU RN Amended: Links added. Addendum: 01/14/21 at 2120 by JIL NAIDU RN Amended: Links added. Addendum: 01/14/21 at 2121 by JIL NAIDU RN Amended: Links added.
--- NOTE | 2021-01-14 19:50 | NUR ---
Family visiting. DNR status and terminal extubation at 0500 confirmed with patient's daughter Bettina. Addendum: 01/14/21 at 2216 by JIL NAIDU RN Amended: Links added. Addendum: 01/14/21 at 2221 by JIL NAIDU RN Amended: Links added.
--- NOTE | 2021-01-14 21:00 | NUR ---
Patient no cough or gag reflexes during suctioning. Sedation vacation done: After 30 minutes patient has increased work of breathing. Diprivan drip resumed at 30 mcg/kg/min. SBPs in the 90's. Will monitor. Addendum: 01/14/21 at 2221 by JIL NAIDU RN Amended: Links added.
--- NOTE | 2021-01-14 22:16 | NUR ---
Pt rec'd on vent settings AC 16, VT 450, FIO2-30%, PEEP +5. No resp. distress noted. 7.5 ETT is patent and secure at approx. 22cm at the lip. Order for terminal extubation noted and will be carried out per MD COREY orders.
--- NOTE | 2021-01-14 22:45 | NUR ---
BPs trending down, now 87/55. Diprivan drip decreased to 20 mcg/kg/min.
[2021-01-15] VITALS (14 sets, daily range): BP systolic 79–132; BP diastolic 43–61
--- NOTE | 2021-01-15 01:47 | NUR ---
BP down to 79/47, HR 89 SR. Amiodarone drip held. Will continue to monitor closely.
--- NOTE | 2021-01-15 04:00 | NUR ---
SBPs 80's-90's. Continue to hold Amiodarone drip. Diprivan drip dc'd, pending terminal extubation at 0500.
[2021-01-15] MEDS ORDERED: MORPHINE SULFATE 2 MG/1 ML DISP.SYRIN IV PRN (05:00)
[2021-01-15] MEDS ORDERED: DC PROPOFOL ONCE EXTUBATED XX PRN (05:00)
--- NOTE | 2021-01-15 05:10 | NUR ---
RTs here. Extubation done, suctioned orally for small amounts of clear white thick secretions. Placed on 100% non rebreather mask. O2 sat 85%. Family at bedside post extubation.
--- NOTE | 2021-01-15 05:10 | NUR ---
Pt extubated (with RN JT at bedside) per MD orders from Sung and subsequently placed on 10LPM NRB. Family members at bedside this time.
[2021-01-15] MEDS: IV NS 1000 ML 1,000 ML IV PRN (05:18)
--- NOTE | 2021-01-15 05:45 | NUR ---
More family members at bedside. Supportive care rendered.
--- NOTE | 2021-01-15 05:53 | NUR ---
Spoke to patient's daughter Bettina re: mortuary arrangements. No arrangements has been made as per daughter.
--- NOTE | 2021-01-15 06:05 | NUR ---
Agonal rhythm on the monitor. Strips documented. Family remains at bedside.
--- NOTE | 2021-01-15 06:27 | NUR ---
Asystole on the monitor.
--- NOTE | 2021-01-15 06:45 | NUR ---
Patient apneic for 5 minutes Pupils fixed and dilated No audible heart tones and breath sounds No palpable pulses and corneal reflexes Pronounced at [id number]
--- NOTE | 2021-01-15 06:50 | NUR ---
[facility] [employer] called and informed of patient's . Spoke to Nimesh. MIGUEL ANGEL for fruit or nut picker 1-1.5 hours.
--- NOTE | 2021-01-15 06:55 | NUR ---
[facility] notified of patient's . C# [id number]; spoke to Hiral.
--- NOTE | 2021-01-15 07:26 | NUR ---
Decedent care done. Report given to Jocelyn CONNER. Awaiting for sampler pickup by Mortuary.
--- NOTE | 2021-01-15 09:05 | NUR ---
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 family in the lobby waiting for corn picker.
== END 2021-01-15 09:12 | DRG 720 ==
LOC: ER 21:39 → CCU 01-08 00:22
PROVIDERS: ADMIT Internal Medicine; ATTEND Internal Medicine
PROC: 0BH17EZ Insertion of Endotracheal Airway into Trachea, Via Natural or Artificial Opening (ICD-10-PCS; principal; 2021-01-08)
PROC: 06HY33Z Insertion of Infusion Device into Lower Vein, Percutaneous Approach (ICD-10-PCS; principal; 2021-01-08)
PROC: 5A1955Z Respiratory Ventilation, Greater than 96 Consecutive Hours (ICD-10-PCS; principal; 2021-01-08)
DX: A41.9 Sepsis, unspecified organism (principal); I26.99 Other pulmonary embolism without acute cor pulmonale; J69.0 Pneumonitis due to inhalation of food and vomit; I21.A1 Myocardial infarction type 2; E43 Unspecified severe protein-calorie malnutrition; J96.01 Acute respiratory failure with hypoxia; N17.0 Acute kidney failure with tubular necrosis; J96.02 Acute respiratory failure with hypercapnia; C79.01 Secondary malignant neoplasm of right kidney and renal pelvis; D68.59 Other primary thrombophilia; E86.1 Hypovolemia; C34.91 Malignant neoplasm of unspecified part of right bronchus or lung; J98.11 Atelectasis; J90 Pleural effusion, not elsewhere classified; R04.2 Hemoptysis; D63.8 Anemia in other chronic diseases classified elsewhere; D50.9 Iron deficiency anemia, unspecified; E87.6 Hypokalemia; I25.10 Atherosclerotic heart disease of native coronary artery without angina pectoris; F17.210 Nicotine dependence, cigarettes, uncomplicated; J44.0 Chronic obstructive pulmonary disease with (acute) lower respiratory infection; I48.0 Paroxysmal atrial fibrillation; C34.92 Malignant neoplasm of unspecified part of left bronchus or lung; N40.0 Benign prostatic hyperplasia without lower urinary tract symptoms; R62.7 Adult failure to thrive; Z20.822 Contact with and (suspected) exposure to COVID-19; Z51.5 Encounter for palliative care; Z79.01 Long term (current) use of anticoagulants; R31.9 Hematuria, unspecified; R57.1 Hypovolemic shock; Z68.1 Body mass index [BMI] 19.9 or less, adult; I70.90 Unspecified atherosclerosis; Z66 Do not resuscitate
CPT/HCPCS: 36415; 36600; 51702; 70030-TC; 71045; 82803; 83550; 83605; 83690; 83735; 84100; 84478; 85018; 85025; 85730; 86850; 86900; 86901; 87040; 87070; 87086; 87400; 93005; 94002; 94003; A4663; C9113; G0378; J0282; J0330; J1956; J2270; J2543; J3370; J3480; J3490; J7030; J7050; J7060; U0003